=== PATIENT | male | born 1940 | race Caucasian/White ===

== ENCOUNTER 2018-12-30 12:39 | Emergency (ER) | payer MEDICARE, OTHER, SELFPAY ==
[2018-12-30 12:40] VITALS: BP 148/83; PULSE 104; RESP 18; TEMP 37.1; O2SAT 96; BMI 35.5
--- NOTE | 2018-12-30 13:02 | ED.RN ---
not triaged by this rn. previous triage under my name by another nurse
--- NOTE | 2018-12-30 13:16 | RAD_ITS ---
STUDY: X-RAY CHEST REASON FOR EXAM: Male, 78 years old. Cough TECHNIQUE: Frontal and lateral views of the chest. COMPARISON: None. FINDINGS: The lungs are clear and expanded. There is no demonstrated pleural abnormality. Normal size heart. Normal mediastinum and rosales. Normal visualized pulmonary arteries. Normal visualized aortic arch and descending thoracic aorta. There are diffuse degenerative changes of the visualized thoracic spine. Normal visualized ribs, clavicles, and shoulders. There is no demonstrated abnormality of the visualized soft tissue structures of the upper abdomen. RAD/Chest PA and Lateral IMPRESSION: Degenerative changes, as described above. No demonstrated acute cardiopulmonary process. Electronically Signed: Omar Herrera MD at 14:08 EDT , Service support ,
--- NOTE | 2018-12-30 13:16 | EKG12_ITS ---
Test Reason : Blood Pressure : / mmHG Vent. Rate : 097 BPM Atrial Rate : 097 BPM P-R Int : 152 ms QRS Dur : 090 ms QT Int : 324 ms P-R-T Axes : 015 -20 -10 degrees QTc Int : 411 ms Sinus rhythm with Premature atrial complexes Minimal voltage criteria for LVH, may be normal variant Borderline ECG Confirmed by SVETA WALKER, ASHA ([id number]), purchasing expeditor FAVIO BARKER ([id number]) on 12/31/2018 11:49:45 AM Referred By: NOAM Confirmed By:ASHA BANGURA MD
--- NOTE | 2018-12-30 13:17 | RAD_ITS ---
STUDY: X-RAY - LEFT ELBOW REASON FOR EXAM: Male, 78 years old. Pain. TECHNIQUE: 3 view(s) of the elbow. COMPARISON: None. FINDINGS: Normal visualized humerus, radius and ulna. 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 The soft tissue structures are unremarkable. There is intravenous catheter. There is no demonstrated fracture. RAD/Elbow min 3 Views IMPRESSION: Arthrosis of the elbow, as described above. Electronically Signed: Omar Herrera MD at 14:03 EDT , Service support ,
[2018-12-30 13:37] LABS: Absolute Lymphocyte Count 1.89 X10^3/ul (0.83-4.51); Absolute Neutrophil Count 12.7 X10^3/uL (2.0-7.7); Basophil# 0.03 X10^3/uL; Basophil% 0.2 % (0-1); Differential Indicated SCAN CRITERIA MET; Eosinophil# 0.08 X10^3/uL; Eosinophils% 0.5 % (0-5); Hematocrit 45.3 % (40-54); Hemoglobin 15.9 g/dl (13.0-16.5); Lymphocyte # 1.89 X10^3/ul (4.0); Lymphocyte % 11.4 % (19-41); Mean Corp Hgb Conc 35.1 g/gl (32-36); Mean Corpuscular Hgb 31.5 pg (27.0-32.0); Mean Corpuscular Volume 89.9 fL (80-94); Mean Platelet Vol. 9.2 fl (6.2-12.0); Monocyte# 1.93 X10^3/uL; Monocyte% 11.6 % (0-10); Neutrophil # 12.67 X10^3/uL (2.7-7.7); POSITIVE COUNT NO; POSITIVE DIFFERENTIAL YES; POSITIVE MORPHOLOGY NO; Platelet Count 306 K/mm3 (150-450); RBC Distribution Width CV 13.2 % (11.6-14.6); Red Blood Count 5.04 M/mm3 (4.6-6.2); White Blood Count 16.7 K/mm3 (4.4-11.0)
[2018-12-30 13:52] LABS: Anion Gap 8 (5-15); BUN 15 mg/dL (7-18); BUN/Creat Ratio 11.6 RATIO (10-20); Chloride 102 mmol/L (98-107); Creatinine, Serum 1.29 mg/dL (0.70-1.30); EST Glomerular Filtration Rate 57 mL/min (>60); Est Glom Filt Rate - Afr Amer 69 mL/min (>60); Estimated Creatinine Clearance 43.28 ml/min; Glucose 192 mg/dL (74-106); Sodium Level 135 mmol/L (136-145)
[2018-12-30 13:53] LABS: Reactive Lymphocyte RARE
--- NOTE | 2018-12-30 14:12 | ED.VISSUMM ---
- ER Visit Summary Date of Service: 12/30/18 Chief Complaint: Left arm pain and sore throat History of Present Illness: The patient is a 78 M who presents with left arm pain and sore throat that has been getting worse over the past 3 days. Patient states his pain is over the proximal forearm and elbow. Patient describes the pain as sharp. Patient states the pain is worse with movement and with lifting. Patient denies any paresthesias or weakness. Patient states he is also had a sore throat and a cough with some green sputum over the past 3 days. Patient also admits to some urinary frequency. Patient states he has pain in his throat that is worse with swallowing. Patient denies any fevers or chills. Physical Examination: Vital signs are stable. Patient is afebrile. Patient is in no acute distress. Oral mucosa is pink and moist. There is a small white exudate on the left tonsil. Neck is supple. Trachea is midline. There is no JVD or lymphadenopathy noted. Heart was regular rate and rhythm. Lungs are clear and equal bilaterally. Abdomen is soft and nontender. Bowel sounds are normal. Musculoskeletal exam reveals tenderness over the left proximal forearm and left elbow area. There is pain with range of motion in all motions of the left elbow. There is no bony crepitance or step-off. There is no deformity noted. Radial pulses are equal bilaterally. Sensation is intact light touch bilaterally in the radial, median, and ulnar areas. Strength is 5/5 in the radial, median, and ulnar areas. Test Results: EKG shows normal sinus rhythm with occasional PAC. There are no acute ST or T wave changes noted. CBC shows a mild leukocytosis of 16.7. Glucose was slightly elevated at 192. Troponin was normal. PA and lateral chest x-ray does not show any acute cardiopulmonary process. X-rays of the left elbow were obtained. There is some mild DJD but no acute fracture loose body. There is no joint effusion. Rapid strep test was obtained and was negative. Urinalysis was obtained. There is no evidence of urinary tract infection Emergency Department Course and Treatment: Patient felt better on reevaluation. Patient was advised of his findings. I do not feel that his left arm pain is cardiac related. It appears to be more musculoskeletal. Patient was instructed to take Tylenol or ibuprofen as needed for pain. Patient was instructed to use ice to the area. Patient was instructed to use sore throat lozenges as needed for his sore throat. Patient was instructed to drink plenty of fluids. Patient was instructed to follow-up with his primary care physician in 5 to 7 days. Patient understood and was agreeable with the plan. All questions were answered. Disposition: Discharge home Impression: 1. Left forearm strain 2. Viral upper respiratory infection This note was generated with [employer] dictation software. It may contain incorrect words, spelling, and punctuation that were not noted in review of the chart prior to signing ED Disposition - Plan for ED Patient: Disposition: Home or Assisted Living Diagnosis: Strain of left elbow and forearm, Acute viral pharyngitis Instructions: ED Strain Muscle Ext, ED Pharyngitis Viral Referrals: [facility] Doctor,Out of [Primary Care Provider] - 5-7 Days
[2018-12-30 15:19] VITALS: BP 150/82; PULSE 87; RESP 18; O2SAT 98
[2018-12-30 15:20] LABS: Bacteria 0 SEEN /hpf (None Seen)
[2018-12-30 15:27] LABS: Color, Urine Yellow (Yellow); Glucose, Dipstick Normal (Normal); Ketone-Dipstick 5 mg/dl (Negative); Leukocyte Esterase-Dipstick 25 /ul (Negative); Nitrite-Dipstick Negative (Negative); Occult Blood-Urine 25 /ul (Negative); Protein-Dipstick 15 mg/dl (Negative); Specific Gravity, Urine 1.015 (1.002-1.030); Urine Bilirubin Dipstick Negative (Negative); Urine Clarity Clear (Clear); Urine Urobilinogen 4 mg/dl (Normal)
[2018-12-30 15:35] LABS: Red Blood Cells-Urine 0-5 SEEN /hpf (0-5); Squamous Epithelial Cells - UA 0-5 SEEN /hpf (0-5); White Blood Cells 0-5 SEEN /hpf (0-5)
[2018-12-30 15:37] LABS: Mucous, Urine RARE /hpf (<or=2+)
[2018-12-30 16:31] VITALS: BP 148/84; PULSE 91; RESP 16; O2SAT 98
[2018-12-31 15:23] LABS: Pathologist Review Reviewed
== END 2018-12-30 16:32 | disposition home or self-care (01) ==
PROVIDERS: Emergency Provider Emergency Medicine
DX: S56.912A Strain of unspecified muscles, fascia and tendons at forearm level, left arm, initial encounter (principal); X58.XXXA Exposure to other specified factors, initial encounter; Y93.9 Activity, unspecified; Y92.9 Unspecified place or not applicable; J02.8 Acute pharyngitis due to other specified organisms; I10 Essential (primary) hypertension; E11.9 Type 2 diabetes mellitus without complications; E66.9 Obesity, unspecified; Z68.35 Body mass index [BMI] 35.0-35.9, adult; Z79.899 Other long term (current) drug therapy
CPT/HCPCS: 71046; 73080; 80048; 81001; 84484; 85025; 87880; 93005; 99283; A4216

== ENCOUNTER → 2019-08-28 11:40 | Outpatient (CLI) | payer MEDICARE, SELFPAY ==
[2019-08-28 10:26] VITALS: BMI 35.8
[2019-08-28 13:22] LABS: Anion Gap 4 (5-15); BUN 15 mg/dL (7-18); BUN/Creat Ratio 10.5 RATIO (10-20); Calcium,Total 9.2 mg/dL (8.5-10.1); Chloride 107 mmol/L (98-107); Creatinine, Serum 1.43 mg/dL (0.70-1.30); EST Glomerular Filtration Rate 51 mL/min (>60); Est Glom Filt Rate - Afr Amer 62 mL/min (>60); Glucose 126 mg/dL (74-106); Potassium 3.7 mmol/L (3.5-5.1); Sodium Level 141 mmol/L (136-145)
== END ==
PROVIDERS: Referring Provider Internal Medicine Cardiovascular Disease; Visit Provider Internal Medicine Cardiovascular Disease
DX: I10 Essential (primary) hypertension (principal)
CPT/HCPCS: 36415; 80048

== ENCOUNTER → 2019-09-03 07:19 | Outpatient (CLI) | payer MEDICARE, SELFPAY ==
[2019-08-28 10:26] VITALS: BMI 35.8
--- NOTE | 2019-09-03 07:38 | CT_ITS ---
STUDY: CT CHEST WITH CONTRAST REASON FOR EXAM: Male, 79 years old. TAA RADIATION DOSAGE (If Supplied By Facility): CTDIvol = ( 16.04 ) mGy, DLP = ( 689.00 ) mGycm TECHNIQUE: Transaxial imaging was performed following intravenous administration of 100CC ISOVUE 300. Multiplanar coronal and sagittal images were reformatted. Individualized dose optimization techniques were used for this CT. COMPARISON: Comparison is made with prior examination dated November 17, 2013. FINDINGS: Diffuse enlargement of the thyroid gland more prominent on the right side. The lungs are normal. There is no demonstrated pleural abnormality. Normal heart and pericardium. There are multiple small lymph nodes within the mediastinum, which are normal in size and morphology most compatible with reactive lymph hyperplasia. Normal hilar regions. Normal enhanced pulmonary arteries. Minimal dilatation of the ascending thoracic aorta with a transverse dimension of 4.5 cm. This is unchanged.. There are multi-level degenerative changes of the thoracic spine. Small hiatal hernia. CT/Chest WITH Contrast IMPRESSION: Stable dilatation of the ascending thoracic aorta with a transverse dimension of 4.5 cm. Electronically Signed: Edilberto Gillis, at 12:32 EST , Service support ,
== END ==
PROVIDERS: Referring Provider Internal Medicine Cardiovascular Disease; Visit Provider Internal Medicine Cardiovascular Disease
DX: I77.810 Thoracic aortic ectasia (principal)
CPT/HCPCS: 71260; Q9967

== ENCOUNTER 2020-08-24 10:13 | Emergency (ER) | payer MEDICARE, SELFPAY ==
[2019-08-28 10:26] VITALS: BMI 35.8
[2020-08-24 10:14] VITALS: BP 159/91; PULSE 76; RESP 16; TEMP 36.2; O2SAT 97; BMI 35.5
--- NOTE | 2020-08-24 10:39 | CT_ITS ---
STUDY: CT ABDOMEN AND PELVIS WITHOUT CONTRAST REASON FOR EXAM: Male, 80 years old. RT FLANK PAIN, NAUSEA. H/O [place] RADIATION DOSAGE (If Supplied By Facility): CTDIvol = ( 19.21 ) mGy, DLP = ( 993.64 ) mGycm TECHNIQUE: Transaxial images were obtained from the dome of the diaphragm to the symphysis pubis with oral contrast, and without intravenous contrast. Sagittal and coronal images were reconstructed. Individualized dose optimization techniques were used for this CT. COMPARISON: Comparison is made with prior study dated 06/14/2013. FINDINGS: Stable minimal scarring at the lung bases. The visualized portions of the heart are within normal limits. Normal liver. Normal gallbladder and extrahepatic biliary system. There are multiple benign calcified granulomata of the spleen. Normal pancreas. Normal bilateral adrenal glands. There is engorgement of the right kidney with right perinephric stranding. Mild degree of the right hydronephrosis and right hydroureter with periureteric stranding due to a 3.5 mm calculus in the distal portion of the right ureter just proximal to the ureterovesical junction. Normal left kidney. There is a small hiatal hernia. Normal small intestine. There are multiple colonic diverticula consistent with diverticulosis. The appendix is visualized and appears normal. There is scattered atherosclerotic calcification of the abdominal aorta, without a demonstrated aneurysm. Normal inferior vena cava. Normal retroperitoneum. Normal urinary bladder. There is a small umbilical hernia containing fat. Small left inguinal hernia containing fat. There are diffuse degenerative changes of the visualized lumbar spine. CT/Abdomen/Pelvis without Cont IMPRESSION: 3.5 mm calculus in the distal portion of the right ureter just proximal to the ureterovesical junction causing a mild degree of right hydronephrosis and hydroureter. Electronically Signed: Edilberto Gillis MD at 11:52 EST , Service support ,
--- NOTE | 2020-08-24 10:40 | ED.DCSUM_ITS ---
History of Present Illness Chief Complaint: Flank Pain Informant: Patient Narrative: 80-year-old male with a previous history of ureterolithiasis presenting with right flank pain. Symptoms have been intermittently present for 3 days. Today symptoms started at approximately 0500 and have not relented. He denies any known hematuria. Denies any abdominal pain. Pain has gotten to the point where he has vomited. He denies any abdominal pain. - Past Medical History (1) Ascending aorta dilatation Status: Chronic Comment: Stable dilatation of the ascending thoracic aorta with a transverse dimension of 4.[address] Scan 08/2019 (2) Essential (primary) hypertension Status: Chronic (3) Hyperlipidemia Status: Chronic (4) Type 2 diabetes mellitus Status: Chronic (5) Bicuspid aortic valve Status: Suspected Past Medical History - Allergies and Home Meds Allergies/Adverse Reactions: Allergies No Known Allergies Allergy (Verified 08/24/20 10:14) Primary Care Physician: NOT,DEFINED [NON-STAFF] - Surgical History: - - Carpal tunnel surgery Lives: Spouse/ Significant Other Smoking Status: Never smoker Drugs: None Review of Systems General: Denies: Chills, Fever, Sweats Eyes: Denies: Visual changes - bilaterally, Diplopia ENT: Denies: Rhinorrhea, Sore throat Cardiovascular: Denies: Chest pain, Palpitations Respiratory: Denies: Dyspnea, Cough, Dyspnea on exertion Gastrointestinal: Denies: Abdominal pain, Nausea, Vomiting, Diarrhea, Melena, Hematochezia Genitourinary: Denies: Dysuria, Hematuria, Frequency Musculoskeletal: Reports: - - Right flank. Denies: Extremity Pain Skin: Denies: Rash, Wounds Neurological: Denies: Headache, Weakness, Numbness Physical Exam Vital Signs/Narrative: Vital Signs Temp Pulse Resp BP Pulse Ox 08/24/20 10:14 97.2 F L 76 16 159/91 H 97 Inital Vital Signs reviewed: Yes General: Well nourished, Well developed, Obese, No Acute Distress, - - Patient appears uncomfortable in the room pacing. He is holding his right flank Head: Normocephalic, Atraumatic Eyes: Perrl, EOMI ENT: Moist mucous membranes, No rhinorrhea Neck: Supple, Nontender Cardiovascular: Regular rate, Regular rhythm, No murmurs Respiratory: No distress, CTA bilaterally, Chest nontender Abdomen: Soft, Nontender, Nondistended, Normal bowel sounds Back: Nontender, Normal Inspection Extremities: Nontender, No edema Skin: Normal color, No rash Neurological: Alert, Oriented x3, Cranial nerves II-XII grossly intact, Normal Strength, Normal Sensation Psychological: Normal affect, Normal Mood Diagnostic/Tx/Re-eval Clinical Impression(s) from Imaging Studies Abdomen/Pelvis CT 08/24/20 10:39 IMPRESSION: 3.5 mm calculus in the distal portion of the right ureter just proximal to the ureterovesical junction causing a mild degree of right hydronephrosis and hydroureter. Electronically Signed: Edilberto Gillis MD at 11:52 EST , Service support , Laboratory Last Values WBC 10.5 K/mm3 (4.4-11.0) 08/24/20 10:52 RBC 5.30 M/mm3 (4.6-6.2) 08/24/20 10:52 Hgb 16.7 g/dL (13.0-16.5) H 08/24/20 10:52 Hct 48.6 % (40-54) 08/24/20 10:52 MCV 91.7 fL (80-94) 08/24/20 10:52 MCH 31.5 pg (27.0-32.0) 08/24/20 10:52 MCHC 34.4 g/dL (32-36) 08/24/20 10:52 RDW Std Deviation 42.1 fl (35.1-43.9) 08/24/20 10:52 RDW Coeff of Tee 12.6 % (11.6-14.6) 08/24/20 10:52 Plt Count 305 K/mm3 (150-450) 08/24/20 10:52 MPV 9.3 fl (6.2-12.0) 08/24/20 10:52 Immature Gran % (Auto) 0.600 % (0.0-0.9) 08/24/20 10:52 Neut % (Auto) 59.4 % (47-70) 08/24/20 10:52 Lymph % (Auto) 27.7 % (19-41) 08/24/20 10:52 [place] % (Auto) 7.8 % (0-10) 08/24/20 10:52 Eos % (Auto) 3.7 % (0-5) 08/24/20 10:52 Baso % (Auto) 0.8 % (0-1) 08/24/20 10:52 Absolute Neuts (auto) 6.3 X10^3/uL (2.0-7.7) 08/24/20 10:52 Absolute Lymphs (auto) 2.92 X10^3/uL (0.83-4.51) 08/24/20 10:52 Nucleated RBC % 0 % (0-5) 08/24/20 10:52 Sodium 140 mmol/L (136-145) 08/24/20 10:52 Potassium 4.1 mmol/L (3.5-5.1) 08/24/20 10:52 Chloride 107 mmol/L (98-107) 08/24/20 10:52 Carbon Dioxide 24.0 mmol/L (21.0-32.0) 08/24/20 10:52 Anion Gap 9 (5-15) 08/24/20 10:52 BUN 13 mg/dL (7-18) 08/24/20 10:52 Creatinine 1.30 mg/dL (0.70-1.30) 08/24/20 10:52 Estim Creat Clear Calc 41.58 ml/min 08/24/20 10:52 Est GFR (MDRD) Af Amer 68 mL/min (>60) 08/24/20 10:52 Est GFR (MDRD) Non-Af 57 mL/min (>60) L 08/24/20 10:52 BUN/Creatinine Ratio 10.0 RATIO (10-20) 08/24/20 10:52 Glucose 179 mg/dL (74-106) H 08/24/20 10:52 Calcium 9.0 mg/dL (8.5-10.1) 08/24/20 10:52 Total Bilirubin 0.30 mg/dL (0.20-1.00) 08/24/20 10:52 AST 20 U/L (15-37) 08/24/20 10:52 ALT 30 U/L (16-61) 08/24/20 10:52 Alkaline Phosphatase 82 U/L (45-117) 08/24/20 10:52 Total Protein 8.0 g/dL (6.4-8.2) 08/24/20 10:52 Albumin 3.8 g/dL (3.2-5.0) 08/24/20 10:52 Globulin 4.2 g/dL (2.2-4.2) 08/24/20 10:52 Albumin/Globulin Ratio 0.9 RATIO (0.9-2.4) 08/24/20 10:52 Lipase 162 U/L (73-393) 08/24/20 10:52 Urine Color Yellow (Yellow) 08/24/20 10:45 Urine Clarity Sl. Cloudy (Clear) 08/24/20 10:45 Urine pH 5.0 (5.0 - 8.0) 08/24/20 10:45 Ur Specific [place] 1.025 (1.002-1.030) 08/24/20 10:45 Urine Protein Negative mg/dl (Negative) 08/24/20 10:45 Urine Glucose (UA) Normal mg/dl (Normal) 08/24/20 10:45 Urine Ketones Negative mg/dl (Negative) 08/24/20 10:45 Urine Occult Blood 10 /ul (Negative) H 08/24/20 10:45 Urine Nitrite Negative (Negative) 08/24/20 10:45 Urine Bilirubin Negative mg/dL (Negative) 08/24/20 10:45 Urine Urobilinogen Normal mg/dl (Normal) 08/24/20 10:45 Ur Leukocyte Esterase 25 /ul (Negative) H 08/24/20 10:45 Urine RBC 0 SEEN /hpf (0-5) 08/24/20 10:45 Urine WBC 0-5 SEEN /hpf (0-5) 08/24/20 10:45 Ur Squamous Epith Cells 0-5 SEEN /hpf (0-5) 08/24/20 10:45 Urine Bacteria RARE /hpf (None Seen) 08/24/20 10:45 Urine Mucus 0 SEEN /hpf (<or=2+) 08/24/20 10:45 - Medical Decision Making Work-up reveals normal white counts normal creatinine and no evidence of UTI. CT demonstrates a distal 3.5 mm calculus. Patient will be started on pain medication at home. Nausea medicine. Follow-up with urology return if worsening or concerns ED Disposition - Plan for ED Patient: Disposition: Home or Assisted Living Diagnosis: Right ureteral calculus, Renal colic on right side Instructions: ED Kidney Stone w/ Colic Prescriptions: Hydrocodone Bitart/Apap 5-325 [[place] 5MG-325MG] 1 tab PO Q6H PRN PRN 3 Days #12 tab PRN Reason: Pain Prescription Printed Ondansetron [Zofran Odt] 4 mg PO Q6H PRN PRN #10 tab PRN Reason: Nausea Prescription Printed Referrals: Jonathan Tello MD [STAFF PHYSICIAN] - (Call to obtain urologic follow-up)
[2020-08-24 10:50] LABS: Mucous, Urine 0 SEEN /hpf (<or=2+); Red Blood Cells-Urine 0 SEEN /hpf (0-5)
[2020-08-24 10:51] LABS: Color, Urine Yellow (Yellow); Glucose, Dipstick Normal (Normal); Ketone-Dipstick Negative (Negative); Leukocyte Esterase-Dipstick 25 /ul (Negative); Nitrite-Dipstick Negative (Negative); Occult Blood-Urine 10 /ul (Negative); Protein-Dipstick Negative (Negative); Specific Gravity, Urine 1.025 (1.002-1.030); Urine Bilirubin Dipstick Negative (Negative); Urine Clarity Sl. Cloudy (Clear); Urine Urobilinogen Normal (Normal)
[2020-08-24] MEDS: Morphine 4 MG/ML Syringe IV (10:55)
[2020-08-24] MEDS: Ondansetron 4 MG/2 ML Vial IV (10:55)
[2020-08-24 10:57] LABS: Bacteria RARE /hpf (None Seen); Squamous Epithelial Cells - UA 0-5 SEEN /hpf (0-5); White Blood Cells 0-5 SEEN /hpf (0-5)
[2020-08-24 10:57] LABS: Absolute Lymphocyte Count 2.92 X10^3/uL (0.83-4.51); Absolute Neutrophil Count 6.3 X10^3/uL (2.0-7.7); Basophil# 0.08 X10^3/uL; Basophil% 0.8 % (0-1); Eosinophil# 0.39 X10^3/uL; Eosinophils% 3.7 % (0-5); Hematocrit 48.6 % (40-54); Hemoglobin 16.7 g/dL (13.0-16.5); Lymphocyte # 2.92 X10^3/ul (4.0); Lymphocyte % 27.7 % (19-41); Mean Corp Hgb Conc 34.4 g/dL (32-36); Mean Corpuscular Hgb 31.5 pg (27.0-32.0); Mean Corpuscular Volume 91.7 fL (80-94); Mean Platelet Vol. 9.3 fl (6.2-12.0); Monocyte# 0.82 X10^3/uL; Monocyte% 7.8 % (0-10); NRBC Flagged by Analyzer 0 % (0-5); Neutrophil # 6.26 X10^3/uL (2.7-7.7); Neutrophil % 59.4 % (47-70); Platelet Count 305 K/mm3 (150-450); RBC Distribution Width CV 12.6 % (11.6-14.6); RBC Distribution Width SD 42.1 fl (35.1-43.9); White Blood Count 10.5 K/mm3 (4.4-11.0)
[2020-08-24 11:11] LABS: ALB/GLOB Ratio 0.9 RATIO (0.9-2.4); AST(SGOT) 20 U/L (15-37); Alanine Aminotransfer ALT/SGPT 30 U/L (16-61); Albumin, Serum 3.8 g/dL (3.2-5.0); Alkaline Phosphatase 82 U/L (45-117); Anion Gap 9 (5-15); BUN 13 mg/dL (7-18); Chloride 107 mmol/L (98-107); EST Glomerular Filtration Rate 57 mL/min (>60); Est Glom Filt Rate - Afr Amer 68 mL/min (>60); Estimated Creatinine Clearance 41.58 ml/min; Globulin 4.2 g/dL (2.2-4.2); Glucose 179 mg/dL (74-106); Lipase 162 U/L (73-393); Potassium 4.1 mmol/L (3.5-5.1); Sodium Level 140 mmol/L (136-145)
[2020-08-24 12:31] VITALS: BP 134/78; PULSE 87; RESP 16; O2SAT 94
== END 2020-08-24 12:31 | disposition home or self-care (01) ==
PROVIDERS: Emergency Provider Emergency Medicine; PCP Internal Medicine
DX: N13.2 Hydronephrosis with renal and ureteral calculous obstruction (principal); E66.9 Obesity, unspecified; Z87.442 Personal history of urinary calculi
CPT/HCPCS: 36415; 74176; 80053; 81001; 83690; 85025; 96374; 96375; 99284; A4216; J2405

== ENCOUNTER → 2020-11-10 12:40 | Outpatient (CLI) | payer MEDICARE, SELFPAY ==
[2020-09-01 09:21] VITALS: BMI 36.6
[2020-11-10 13:06] LABS: Hematocrit 46.4 % (40-54); Hemoglobin 15.7 g/dL (13.0-16.5); Mean Corp Hgb Conc 33.8 g/dL (32-36); Mean Corpuscular Hgb 31.6 pg (27.0-32.0); Mean Corpuscular Volume 93.4 fL (80-94); Mean Platelet Vol. 9.3 fl (6.2-12.0); Platelet Count 285 K/mm3 (150-450); RBC Distribution Width CV 13.7 % (11.6-14.6); RBC Distribution Width SD 46.4 fl (35.1-43.9); Red Blood Count 4.97 M/mm3 (4.6-6.2); White Blood Count 10.7 K/mm3 (4.4-11.0)
[2020-11-10 13:37] LABS: Anion Gap 6 (5-15); BUN 14 mg/dL (7-18); Calcium,Total 9.1 mg/dL (8.5-10.1); Chloride 107 mmol/L (98-107); Creatinine, Serum 1.27 mg/dL (0.70-1.30); EST Glomerular Filtration Rate 58 mL/min (>60); Est Glom Filt Rate - Afr Amer 70 mL/min (>60); Glucose 146 mg/dL (74-106); Potassium 3.7 mmol/L (3.5-5.1); Sodium Level 140 mmol/L (136-145)
[2020-11-10 13:38] LABS: BNP,B-Type NATRIURETIC PEPTIDE 24.8 pg/mL (0-100)
== END ==
PROVIDERS: PCP Internal Medicine; Referring Provider Nurse Practitioner Family; Visit Provider Nurse Practitioner Family
DX: R14.0 Abdominal distension (gaseous) (principal); R06.00 Dyspnea, unspecified; R06.02 Shortness of breath; R00.0 Tachycardia, unspecified; I71.2 Thoracic aortic aneurysm, without rupture; I10 Essential (primary) hypertension
CPT/HCPCS: 36415; 80048; 83880; 85027

== ENCOUNTER 2020-11-12 09:06 | Observation (INO) | payer MEDICARE, SELFPAY ==
[2020-11-10 13:26] VITALS: BMI 36.3
[2020-11-12] VITALS (12 sets, daily range): BP systolic 128–153; BP diastolic 71–90; PULSE 62–88; RESP 16–20; TEMP 36.5–37.1; O2SAT 93–95; BMI 36.3; BMI 36.4; BMI 36.5
--- NOTE | 2020-11-12 09:24 | EKG12_ITS ---
Test Reason : SOB Blood Pressure : / mmHG Vent. Rate : 075 BPM Atrial Rate : 075 BPM P-R Int : 172 ms QRS Dur : 094 ms QT Int : 414 ms P-R-T Axes : 028 -09 -01 degrees QTc Int : 462 ms Normal sinus rhythm Inferior infarct , age undetermined Abnormal ECG Confirmed by WARREN WALKER, WENDIE ([id number]), video news editor JUAN GALINDO ([id number]) on 11/17/2020 9:08:07 AM Referred By: SIGRID Confirmed By:BECKIE KELLEY MD
--- NOTE | 2020-11-12 09:25 | CT_ITS ---
STUDY: CTA CHEST REASON FOR EXAM: Male, 80 years old. Shortness of breath PE suspected RADIATION DOSAGE (If Supplied By Facility): CTDIvol = ( 12.3 ) mGy, DLP = ( 545.07 ) mGycm TECHNIQUE: The examination was performed with the intravenous administration of IV 100mL Isovue-370. Post-processing of the angiographic images was performed, with multiplanar reformation and 3D reconstruction. Individualized dose optimization techniques were used for this CT. COMPARISON: Comparison is made with prior examination dated 09/03/2019. FINDINGS: Enlargement of the right lobe of the thyroid. There are multiple bilateral intraluminal filling defects in branches of both the right and left pulmonary arteries in keeping with diffuse bilateral pulmonary emboli. Thrombus is also seen within the interlobar pulmonary arteries bilaterally. There is aneurysmal dilatation of the ascending aorta. The transverse diameter of the ascending aorta measures 43.9 mm''s. There is no demonstrated aortic dissection. Normal heart and pericardium. There are visualized mediastinal lymph nodes, which are within normal size limits, and with normal morphology. There are calcified left hilar lymph nodes. Normal visualized trachea and bronchi. The lungs are well expanded. Minimal degree of increased markings at the lung bases suggest some mild atelectasis. Normal pleura. Normal chest wall structures. There are degenerative changes of thoracic spine. Small hiatal hernia. CT/CTA Chest W/WO Contrast IMPRESSION: Diffuse bilateral pulmonary emboli as described. Stable dilatation of the proximal ascending thoracic aorta. Electronically Signed: Edilberto Gillis MD at 10:40 EDT , Service support ,
--- NOTE | 2020-11-12 09:27 | ED.DCSUM_ITS ---
History of Present Illness Chief Complaint: Shortness of Breath Narrative: This patient is a 80-year-old male who presents with shortness of breath. He states he had an upper GI on October 02. Ever since then he has had progressively worsening shortness of breath particularly with exertion. He also has had about a 5 pound weight gain. He has some mild swelling on his legs. No history of congestive heart failure. No chest pain. No infectious symptoms. He denies fever congestion rhinorrhea cough. No vomiting. No diarrhea. He does have a history of pulmonary embolism in 2013. He is no longer on anticoagulation. He saw cardiology 2 days ago. He is scheduled for Holter monitoring, echocardiogram, outpatient CT angiogram. He also had an x-ray. Per the patient this showed a spot which they thought may be a nipple shadow so he had a follow-up x-ray as well as blood work. He was called back and told to go to the emergency department immediately due to concern for possible blood clot. I suspect this was due to an elevated D-dimer but the patient is uncertain. On ambulating to the room patient desaturated to 87% on room air. Past Medical History - Allergies and Home Meds Allergies/Adverse Reactions: Allergies No Known Allergies Allergy (Verified 11/12/20 09:09) Primary Care Physician: Annette Lopez MD [Primary Care Provider] - Past Medical History: - - Diabetes, hypertension, history of pulmonary embolism Surgical History: - - Carpal tunnel surgery Smoking Status: Never smoker Review of Systems All systems negative except as indicated General: Denies: Fever Eyes: Denies: Visual changes - bilaterally ENT: Denies: Bilateral ear pain Cardiovascular: Denies: Chest pain Respiratory: Reports: Dyspnea. Denies: Cough Gastrointestinal: Denies: Abdominal pain, Nausea, Vomiting, Diarrhea Musculoskeletal: Reports: Swelling. Denies: Myalgias, Arthralgias, Extremity Pain Skin: Denies: Rash Neurological: Denies: Headache Allergy: Denies: Uticaria Physical Exam Vital Signs/Narrative: Vital Signs Temp Pulse Resp BP Pulse Ox 11/12/20 09:17 97.9 F 88 20 H 153/83 H 93 11/12/20 09:06 97.9 F 88 20 H 153/83 H 93 Inital Vital Signs reviewed: Yes General: Well nourished Head: Normocephalic Eyes: EOMI ENT: Moist mucous membranes Neck: Supple Cardiovascular: Regular rate, Regular rhythm Respiratory: No distress, CTA bilaterally. Negative for: Rales, Rhonchi, Wheezing Abdomen: Soft, Nontender Extremities: Nontender, No edema - Mild lower extremity edema, symmetric Skin: Normal color Neurological: Alert Psychological: Normal affect Diagnostic/Tx/Re-eval Impressions Chest CTA 11/12/20 09:25 IMPRESSION: Diffuse bilateral pulmonary emboli as described. Stable dilatation of the proximal ascending thoracic aorta. Electronically Signed: Edilberto Gillis MD at 10:40 EDT , Service support , 11/12/20 09:25 CTA Chest W/WO Contrast [CT] Stat 11/12/20 09:40 Nasal Secretion SARS-CoV-2 Antigen (Rapid) - Final Laboratory Results 11/12/20 11/12/20 11/12/20 09:50 09:50 09:50 WBC 7.9 RBC 5.03 Hgb 15.4 Hct 45.8 MCV 91.1 MCH 30.6 MCHC 33.6 RDW Std Deviation 45.7 H RDW Coeff of Tee 13.7 Plt Count 279 MPV 9.2 Immature Gran % (Auto) 0.800 Neut % (Auto) 60.8 Lymph % (Auto) 25.1 [place] % (Auto) 9.9 Eos % (Auto) 2.9 Baso % (Auto) 0.5 Absolute Neuts (auto) 4.8 Absolute Lymphs (auto) 1.97 Nucleated RBC % 0 PT 13.1 INR 1.1 Sodium 139 Potassium 4.0 Chloride 108 H Carbon Dioxide 26.0 Anion Gap 5 BUN 15 Creatinine 1.26 Estim Creat Clear Calc 42.90 Est GFR (MDRD) Af Amer 71 Est GFR (MDRD) Non-Af 59 L BUN/Creatinine Ratio 11.9 Glucose 164 H Calcium 8.9 Troponin I < 0.015 B-Natriuretic Peptide 11/12/20 09:50 WBC RBC Hgb Hct MCV MCH MCHC RDW Std Deviation RDW Coeff of Tee Plt Count MPV Immature Gran % (Auto) Neut % (Auto) Lymph % (Auto) [place] % (Auto) Eos % (Auto) Baso % (Auto) Absolute Neuts (auto) Absolute Lymphs (auto) Nucleated RBC % PT INR Sodium Potassium Chloride Carbon Dioxide Anion Gap BUN Creatinine Estim Creat Clear Calc Est GFR (MDRD) Af Amer Est GFR (MDRD) Non-Af BUN/Creatinine Ratio Glucose Calcium Troponin I B-Natriuretic Peptide 26.3 - Medical Decision Making On ambulating to the room patient's pulse ox was 87% with ambulation. He is 93% on room air at rest. EKG shows normal sinus rhythm inferior Q waves. Serum laboratory studies are unremarkable. CT angiogram of the chest shows bilateral pulmonary emboli. Patient was started on Xarelto. Given his hypoxia he will be discussed with the hospitalist for admission. ED Disposition - Plan for ED Patient: Disposition: Acute Care [facility] Diagnosis: Pulmonary emboli Referrals: Annette Lopez MD [Primary Care Provider] -
[2020-11-12 10:10] LABS: Absolute Lymphocyte Count 1.97 X10^3/uL (0.83-4.51); Absolute Neutrophil Count 4.8 X10^3/uL (2.0-7.7); Basophil# 0.04 X10^3/uL; Basophil% 0.5 % (0-1); Eosinophil# 0.23 X10^3/uL; Eosinophils% 2.9 % (0-5); Hematocrit 45.8 % (40-54); Hemoglobin 15.4 g/dL (13.0-16.5); Lymphocyte # 1.97 X10^3/ul (0.83-4.51); Lymphocyte % 25.1 % (19-41); Mean Corp Hgb Conc 33.6 g/dL (32-36); Mean Corpuscular Hgb 30.6 pg (27.0-32.0); Mean Corpuscular Volume 91.1 fL (80-94); Mean Platelet Vol. 9.2 fl (6.2-12.0); Monocyte# 0.78 X10^3/uL; Monocyte% 9.9 % (0-10); NRBC Flagged by Analyzer 0 % (0-5); Neutrophil # 4.77 X10^3/uL (2.7-7.7); Neutrophil % 60.8 % (47-70); Platelet Count 279 K/mm3 (150-450); RBC Distribution Width CV 13.7 % (11.6-14.6); RBC Distribution Width SD 45.7 fl (35.1-43.9); Red Blood Count 5.03 M/mm3 (4.6-6.2); White Blood Count 7.9 K/mm3 (4.4-11.0)
[2020-11-12 10:16] LABS: International Normalized Ratio 1.1; Prothrombin Time (Protime)PT. 13.1 SECONDS (11.7-14.9)
[2020-11-12 10:22] LABS: Anion Gap 5 (5-15); BUN 15 mg/dL (7-18); BUN/Creat Ratio 11.9 RATIO (10-20); Calcium,Total 8.9 mg/dL (8.5-10.1); Chloride 108 mmol/L (98-107); Creatinine, Serum 1.26 mg/dL (0.70-1.30); EST Glomerular Filtration Rate 59 mL/min (>60); Est Glom Filt Rate - Afr Amer 71 mL/min (>60); Glucose 164 mg/dL (74-106); Sodium Level 139 mmol/L (136-145)
[2020-11-12 10:36] LABS: BNP,B-Type NATRIURETIC PEPTIDE 26.3 pg/mL (0-100)
[2020-11-12] MEDS: Rivaroxaban 15 MG Tablet PO ×2 (10:52→16:23)
--- NOTE | 2020-11-12 11:35 | ED.RN ---
to move car and use [facility]. dr das in to see pt for admission.
--- NOTE | 2020-11-12 12:07 | HP.PCM_ITS ---
Problem List (1) Pulmonary emboli Status: Acute (2) Abdominal distention Status: Chronic (3) Dyspnea on exertion Status: Acute (4) Shortness of breath Status: Acute (5) Tachycardia Status: Acute (6) Thoracic aortic aneurysm (TAA) Status: Chronic Qualifiers: Presence of rupture: without rupture Qualified Code(s): I71.2 - Thoracic aortic aneurysm, without rupture Comment: Stable dilatation of the ascending thoracic aorta with a transverse dimension of 4.[address] Scan 08/2019 (7) Essential (primary) hypertension Status: Chronic (8) Hyperlipidemia Status: Chronic History of Present Illness Date of Admission: 11/12/20 Chief Complaint: shortness of breath The patient is a 80 year old M presents with shortness of breath that began October 01. on October 01, he underwent an EGD and was short of breath afterwards. He has had NIEVES. Denies chest pain. He presents with ongoing shortness of breath. He underwent a CTA and found to have bilateral PEs. He received rivaroxaban. Pt's pulse ox dropped down to 87% on RA. He has had VTE in past (he is unsure if DVT or PE) after travelling to [facility] years ago. He was on anticoagulation for several months at that time. He denies any immobilization, leg injury. [] Past Medical History Past Medical History (Chronic Problems): Chronic Problems (Last Reviewed 11/10/20 @ 13:30 by Eveline Rea) Abdominal distention (Chronic) Thoracic aortic aneurysm (TAA) (Chronic) Stable dilatation of the ascending thoracic aorta with a transverse dimension of 4.[address] Scan 08/2019 Essential (primary) hypertension (Chronic) Hyperlipidemia (Chronic) Medical History: Medical History (Last Reviewed 11/12/20 @ 12:[address] Rickie Chino, ) Abdominal distention (Chronic) R14.0 Dyspnea on exertion (Acute) R06.00 Shortness of breath (Acute) R06.02 Tachycardia (Acute) R00.0 Thoracic aortic aneurysm (TAA) (Chronic) I71.2 Stable dilatation of the ascending thoracic aorta with a transverse dimension of 4.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 CKD (chronic kidney disease) N18.9 Diverticulosis K57.90 Obesity E66.9 Type 2 diabetes mellitus E11.9 Anal fistula K60.3 GI bleed K92.2 History of pulmonary embolism Onset Date: 10/2013 Z86.711 LLL Kidney stone N20.0 Bicuspid aortic valve (Ruled-out) Q23.1 Allergies No Known Allergies Allergy (Verified 11/12/20 09:09) Home Medications: Ambulatory Orders Medication Instructions Recorded Lisinopril [Zestril] 40 mg PO DAILY 06/14/13 aspirin 81 mg tablet,delayed 81 mg PO DAILY 08/27/19 release glimepiride 1 mg tablet 1 mg PO DAILY 08/27/19 beet root 2 cap PO .QD 08/28/19 tamsulosin 0.4 mg capsule 0.4 mg PO QHS cap 09/01/20 Surgical History: Surgical History (Last Reviewed 11/12/20 @ 12:[address] Rickie Chino, DO) History of carpal tunnel release Z98.890 History of colonoscopy Z98.890 History of rectal surgery Z98.890 anal fistula repair History of shoulder surgery Z98.890 Surgical History: - - Carpal tunnel surgery Psychiatric History: No pertinent psych hx Smoking Status: Never smoker - *Family History Maternal History Items: - - CAD Review of Systems Constitutional: Denies: Anorexia, Chills, Fever, Night Sweats Eyes: Denies: Blurred vision, Double vision HEENT: Denies: Head Aches, Sinus Congestion, Sinus Drainage Cardiovascular: Denies: Chest Pain, Palpitations Respiratory: Reports: Shortness of breath upon exertion Gastrointestinal: Denies: Abdominal Pain, Hematochezia, Nausea, Melena, Vomiting Genitourinary: Denies: Hematuria Musculoskeletal: Denies: Joint Pain, Joint Tenderness Skin: Denies: Rash, Wounds Neurological: Denies: Numbness, Tingling, Focal weakness Hematologic/ Lymphatic: Reports: Hx of blood clot. Denies: Easy Bruising, Easy Bleeding Comment: All review of systems were negative except as mentioned above in the history of present illness and the other review of systems. VTE Information - Inpt Only VTE Present on Admission: Yes VTE Mechan Device Prophylaxis: None VTE Pharm Prophylaxis ordered?: No Reason prophylaxis not ordered:: Treatment Not Indicated Patient Problems: Active and Suspected Problems (Last Reviewed 11/10/20 @ 13:30 by Eveline Rea) Pulmonary emboli (Acute) - Physical Exam Vitals/I&O's: Vital Signs Temp Pulse Resp BP Pulse Ox 36.6 C 62 17 139/90 H 94 11/12/20 11:29 11/12/20 11:29 11/12/20 11:29 11/12/20 11:29 11/12/20 11:29 Oxygen Delivery Method Room Air Weight: 102.058 kg Body Mass Index (BMI) 36.3 General: Alert, Cooperative, No apparent distress HEENT: Atraumatic, Normocephalic Oral: Moist Mucosa, No Gingival or Mucosal Lesions/ Ulcerations Neck: No Nodes, Thyroid Normal Size and Texture Lungs: Clear to auscultation, Normal air movement, No rhonchi, No wheeze Cardiovascular: Regular rate, Regular Rhythm, Normal S1, Normal S2, No murmurs Abdomen: Bowel Sounds Present, Soft, Non Tender, Non-Distended, No Hepato- splenomegaly Extremities: No edema, No Calf Tenderness Skin: No rashes, No breakdown Musculoskeletal: No Tenderness to Palpation of Joints or Extremities Psych/Mental Status: Normal Affect, Appropriate Microbiology Past 72 Hours 11/12/20 09:40 Nasal Secretion SARS-CoV-2 Antigen (Rapid) - Final Laboratory Results 11/12/20 09:50: WBC 7.9, RBC 5.03, Hgb 15.4, Hct 45.8, MCV 91.1, MCH 30.6, MCHC 33.6, RDW Std Deviation 45.7 H, RDW Coeff of Tee 13.7, Plt Count 279, MPV 9.2, Immature Gran % (Auto) 0.800, Neut % (Auto) 60.8, Lymph % (Auto) 25.1, [place] % (Auto) 9.9, Eos % (Auto) 2.9, Baso % (Auto) 0.5, Absolute Neuts (auto) 4.8, Absolute Lymphs (auto) 1.97, Nucleated RBC % 0 11/12/20 09:50: PT 13.1, INR 1.1 11/12/20 09:50: Sodium 139, Potassium 4.0, Chloride 108 H, Carbon Dioxide 26.0, Anion Gap 5, BUN 15, Creatinine 1.26, Estim Creat Clear Calc 42.90, Est GFR (MDRD) Af Amer 71, Est GFR (MDRD) Non-Af 59 L, BUN/Creatinine Ratio 11.9, Glucose 164 H, Calcium 8.9, Troponin I < 0.015 11/12/20 09:50: B-Natriuretic Peptide 26.3 Clinical Impression(s) from Imaging Studies Chest CTA 11/12/20 09:25 IMPRESSION: Diffuse bilateral pulmonary emboli as described. Stable dilatation of the proximal ascending thoracic aorta. Electronically Signed: Edilberto Gillis MD at 10:40 EDT , Service support , Assessment/Plan All Active Problems (Last Reviewed 11/10/20 @ 13:30 by Eveline Rea) Pulmonary emboli (Acute) Dyspnea on exertion (Acute) Shortness of breath (Acute) Tachycardia (Acute) Chest pain (Resolved) Bicuspid aortic valve (Ruled-out) 1. pulmonary embolism Symptoms began on October 01. Is likely subacute rather than acute. Patient, I suspect, has a predisposition to blood clots. Patient had a blood clot sound like it was provoked several years ago when visiting [facility] in [place]. Plan: * Is to continue with rivaroxaban for at least 6 months though I suspect he will be on it longer. I advised the patient to follow-up with hematology at around 6-month bebeto to see if he would require hypercoagulable work-up or lifelong anticoagulation as this particular blood clot was unprovoked. * Check an echocardiogram and cycle cardiac markers. 2. Hypertension Fair control at this time Continue with lisinopril OBSV E&M: 14492 Subsequent observation care L2
--- NOTE | 2020-11-12 12:13 | ECHOD_ITS ---
Reason For Study: PE Procedure This was a 2D Doppler, Color Flow transthoracic echocardiogram. The study was technically difficult. Exam performed portable in patient room. Left Ventricle Normal LV size. Left ventricular systolic function is normal. The estimated ejection fraction is 65 %. There is evidence of diastolic dysfunction. No regional wall motion abnormalities noted. Right Ventricle Mildly dilated right ventricle. Normal systolic function. Atria Normal left atrium. Normal right atrium. No doppler evidence for ASD. Mitral Valve There is no mitral annular calcification. Normal mitral valve. Trivial mitral valve insufficiency. Tricuspid Valve Normal tricuspid valve. Trivial tricuspid valve insufficiency. Right ventricular systolic pressure estimated to be 57 mmHg. Aortic Valve Trisinus/trileaflet aortic valve. Moderate focal aortic valve calcification. Trivial aortic valve insufficiency. Pulmonic Valve The pulmonic valve is not well visualized. Great Vessels Mildly dilated aortic root. Pericardium/Pleural No pericardial effusion. Medication Negative bubble on previous MEGGAN. MMode/2D Measurements & Calculations LVIDd: 4.4 cm IVSd: 1.2 cm LVOT diam: 2.3 cm LVIDs: 2.8 cm LVPWd: 1.3 cm RVDd: 3.7 cm FS: 37.7 % LVOT area: 4.2 cm2 Ao root diam: 4.3 cm LAV(MOD-bp): 36.0 ml LA A4 area: 13.7 cm2 LAV(MOD-bp) Indexed: 17.1 ml/m2 LAV(MOD-sp2): 39.4 ml LAV(MOD-sp4): 31.1 ml LA dimension(2D): 2.8 cm RA A4 area: 11.6 cm2 Doppler Measurements & Calculations MV E max cruz: 81.6 cm/sec Lat Peak E' Cruz: 11.9 cm/sec Med Peak E' Cruz: 5.6 cm/sec MV A max cruz: 101.6 cm/sec E/E' lat: 6.9 E/E' med: 14.7 MV E/A: 0.80 Ao V2 max: 210.8 cm/sec LV V1 max: 128.8 cm/sec SV(LVOT): 110.5 ml Ao max P.8 mmHg LV V1 max P.6 mmHg Ao V2 mean: 135.3 cm/sec LV V1 mean P.5 mmHg Ao mean P.4 mmHg LV V1 mean: 87.5 cm/sec Ao V2 VTI: 38.7 cm LV V1 VTI: 26.3 cm CHLOE(I,D): 2.9 cm2 CHLOE(V,D): 2.6 cm2 PA V2 max: 64.8 cm/sec TR max cruz: 338.6 cm/sec TR max P.9 mmHg ECHO/Echo Complete Interpretation Summary The study was technically difficult. Left ventricular systolic function is normal. The estimated ejection fraction is 65 %. Mildly dilated right ventricle. Trivial mitral valve insufficiency. Trivial tricuspid valve insufficiency. Moderate focal aortic valve calcification. Mildly dilated aortic root. Right ventricular systolic pressure estimated to be 57 mmHg c/w pulmonary hyper tension. There is evidence of diastolic dysfunction. Ordering Physician: Rickie Chino Referring Physician: Annette Lopez Performed By: Diane Albert RDCS
[2020-11-12] MEDS: Tamsulosin HCl 0.4 MG Capsule PO (20:30)
[2020-11-13 00:05] VITALS: BP 133/66; PULSE 66; RESP 16; TEMP 36.8; O2SAT 94
[2020-11-13 03:00] VITALS: PULSE 67
[2020-11-13 06:03] LABS: ALB/GLOB Ratio 0.9 RATIO (0.9-2.4); AST(SGOT) 13 U/L (15-37); Alanine Aminotransfer ALT/SGPT 26 U/L (16-61); Albumin, Serum 3.1 g/dL (3.2-5.0); Alkaline Phosphatase 76 U/L (45-117); Anion Gap 5 (5-15); BUN 18 mg/dL (7-18); BUN/Creat Ratio 14.2 RATIO (10-20); Calcium,Total 8.6 mg/dL (8.5-10.1); Chloride 106 mmol/L (98-107); Creatinine, Serum 1.27 mg/dL (0.70-1.30); EST Glomerular Filtration Rate 58 mL/min (>60); Est Glom Filt Rate - Afr Amer 70 mL/min (>60); Estimated Creatinine Clearance 42.56 ml/min; Globulin 3.3 g/dL (2.2-4.2); Glucose 168 mg/dL (74-106); Protein, Total 6.4 g/dL (6.4-8.2); Sodium Level 137 mmol/L (136-145)
[2020-11-13 06:05] VITALS: BP 129/79; PULSE 85; RESP 16; TEMP 36.7; O2SAT 96
[2020-11-13 06:51] VITALS: PULSE 86
[2020-11-13] MEDS: Rivaroxaban 15 MG Tablet PO (08:52)
[2020-11-13] MEDS: Aspirin E.C. 81 MG Tablet PO (08:52)
[2020-11-13] MEDS: Lisinopril 40 MG Tablet PO (08:52)
[2020-11-13] MEDS: Glimepiride 1 MG Tablet PO (08:52)
[2020-11-13 10:46] VITALS: O2SAT 86; O2SAT 94
--- NOTE | 2020-11-13 11:07 | CASEMGMT ---
Addendum entered by Samantha Donis 11/13/20 12:18: Xarelto e-scribed to [facility] previously and call to [facility] pharmacy to verify coverage/co-pay. Per Tona at pharmacy, pt's co-pay for 1st script is $226.26 which is most likely deductible and pt provided with Xarelto 30 day free trial offer coupon at this time, voices understanding. oTna states 30 day Xarelto will be about $42 co-pay. Pt/ updated on all, voice understanding. Pt still awaiting portable tank from [facility] but voices no further questions/concerns/needs. Michelle ARMSTRONG CM Original Note: Per Michelle RN, pt does qualify for 2L w/ exertion and this RN CM to room to discuss with pt/daughter. After provided list of local in-network DME, pt states he would like [facility] as they would be the preferred provider. Script faxed to [facility] and call placed to them to notify of referral and discharge today, voice understanding. Pt also to be sent home on Xarelto, once med sent, CM to call and check coverage/co-pay. Michelle ARMSTRONG CM
--- NOTE | 2020-11-13 11:24 | PCM.DC ---
- Discharge Diagnoses Current Active Problems: Current Active and Chronic Problems (Last Reviewed 11/12/20 @ 12:[address] Rickie Chino, DO) Pulmonary emboli (Acute 11/12/20) Abdominal distention (Chronic) Dyspnea on exertion (Acute) Shortness of breath (Acute) Tachycardia (Acute) Thoracic aortic aneurysm (TAA) (Chronic) Stable dilatation of the ascending thoracic aorta with a transverse dimension of 4.[address] Scan 08/2019 Essential (primary) hypertension (Chronic) Hyperlipidemia (Chronic) You will use the following diet at home:: Calorie/Carbohydrate Controlled (specify 1200, 1400, etc) - 1800 Your food should be the consistency of: Regular Your liquids should be the consistency of: Regular/Thin Discharge Activity: Return to Normal Activity Call your doctor if you observe: Shortness of breath Allergies/Adverse Reactions: Allergies No Known Allergies Allergy (Verified 11/12/20 09:09) Medications to take at Discharge Lisinopril [Zestril] 40 mg PO DAILY 06/14/13 aspirin 81 mg tablet,delayed release 81 mg PO DAILY 08/27/19 glimepiride 1 mg tablet 1 mg PO DAILY 08/27/19 beet root 2 cap PO .QD 08/28/19 tamsulosin 0.4 mg capsule 0.4 mg PO DAILY cap 09/01/20 Rivaroxaban [Xarelto] 15 mg PO BIDCM #38 tablet 11/13/20 Rivaroxaban [Xarelto] 20 mg PO DAILY #30 tab 11/13/20 The following prescriptions were given: Rivaroxaban [Xarelto] 15 mg PO BIDCM #38 tablet Transmission Status: Pending to [id number] Rivaroxaban [Xarelto] 20 mg PO DAILY #30 tab Transmission Status: Pending to [facility] Primary Care Physician: Annette Lopez MD [Primary Care Provider] - Within 2 Weeks Test Results: Test results from this visit will be discussed in further detail at your follow-up appointment, if applicable. Proposed Discharge Date: 11/13/20
--- NOTE | 2020-11-13 11:26 | DS.PCM_ITS ---
Discharge Date and Diagnosis - Problem List Patient Problems: Active and Suspected Problems (Last Reviewed 11/12/20 @ 12:[address] Rickie Chino DO) Pulmonary emboli (Acute 11/12/20) Dyspnea on exertion (Acute) Shortness of breath (Acute) Tachycardia (Acute) Date of Admission: 11/12/20 Date of Discharge: 11/13/20 - Primary Discharge Diagnosis Acute Problems: Active Problems (Last Reviewed 11/12/20 @ 12:[address] Rickie Chino DO) Pulmonary emboli (Acute 11/12/20) Dyspnea on exertion (Acute) Shortness of breath (Acute) Tachycardia (Acute) - Secondary Discharge Diagnosis Chronic Problems: Chronic Problems (Last Reviewed 11/12/20 @ 12:[address] Rickie Chino DO) Abdominal distention (Chronic) Thoracic aortic aneurysm (TAA) (Chronic) Stable dilatation of the ascending thoracic aorta with a transverse dimension of 4.[address] Scan 08/2019 Essential (primary) hypertension (Chronic) Hyperlipidemia (Chronic) Hospital Course and Treatment Imaging Results: Clinical Impression(s) from Imaging Studies Chest CTA 11/12/20 09:25 IMPRESSION: Diffuse bilateral pulmonary emboli as described. Stable dilatation of the proximal ascending thoracic aorta. Electronically Signed: Edilberto Gillis MD at 10:40 EDT , Service support , Echocardiogram 11/12/20 12:13 Interpretation Summary The study was technically difficult. Left ventricular systolic function is normal. The estimated ejection fraction is 65 %. Mildly dilated right ventricle. Trivial mitral valve insufficiency. Trivial tricuspid valve insufficiency. Moderate focal aortic valve calcification. Mildly dilated aortic root. Right ventricular systolic pressure estimated to be 57 mmHg c/w pulmonary hypertension. There is evidence of diastolic dysfunction. Ordering Physician: Rickie Chino Referring Physician: Annette Lopez Performed By: Diane Albert RDCS Operations: None Procedures: 2-D Echocardiogram Summary of Care Provided: The patient is a 80 year old M presents with dyspnea on exertion that began October 01. At that time patient undergone EGD and felt short of breath afterwards. Patient had a CTA that showed bilateral PE and started on rivaroxaban. Patient was hypoxic with activity. Patient had echocardiogram that showed an EF of 65% with mildly dilated right ventricle, trivial mitral valve insufficiency, trivial tricuspid valve insufficiency and right ventricular systolic pressure 55 mmHg. 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 Patient has previously had a polysomnogram that was supposedly negative. Patient advised to be reevaluated for another polysomnogram is family is endorsing patient does have apnea episodes at night. 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 I told he and his daughter, who is a nurse, that he get another opinion to her apartment maintenance supervisor. Daughter states that she has a history of MTHFR mutation history of blood clots. At rest, patient's pulse ox was 94% on room air but with activity dropped down to 86%. Patient will require 2 L of oxygen with activity. [] Patient Problems: Active and Suspected Problems (Last Reviewed 11/12/20 @ 12:[address] Rickie Chino, DO) Pulmonary emboli (Acute 11/12/20) Dyspnea on exertion (Acute) Shortness of breath (Acute) Tachycardia (Acute) - Physical Exam Vitals/I&O's: Vital Signs Temp Pulse Resp BP Pulse Ox 36.7 C 86 16 129/79 H 94 11/13/20 06:05 11/13/20 06:51 11/13/20 06:05 11/13/20 06:05 11/13/20 10:46 Oxygen Flow Rate (L/min) [ 2 AMBULATING with Oxygen #1] Oxygen Delivery Method Room Air Weight: 102.5 kg Body Mass Index (BMI) 36.4 Intake and Output for Last 24 Hours 11/11/20 11/12/2021 23:59 23:59 23:59 Intake Total 720 / 840 180 / 180 Output Total 0 / 0 Balance 720 / 840 180 / 180 General: Alert, No apparent distress HEENT: Atraumatic, Normocephalic Oral: Moist Mucosa, No Gingival or Mucosal Lesions/ Ulcerations Neck: No Nodes, Thyroid Normal Size and Texture Lungs: Clear to auscultation, Normal air movement, No rhonchi, No wheeze Cardiovascular: Regular rate, Regular Rhythm, Normal S1, Normal S2 Abdomen: Bowel Sounds Present, Soft, Non Tender, Non-Distended Psych/Mental Status: Normal Affect, Appropriate Microbiology Past 72 Hours 11/12/20 09:40 Nasal Secretion SARS-CoV-2 Antigen (Rapid) - Final Laboratory Results 11/12/20 12:55: Troponin I < 0.015 11/12/20 15:48: Troponin I < 0.015 11/13/20 05:24: Sodium 137, Potassium 4.0, Chloride 106, Carbon Dioxide 26.0, Anion Gap 5, BUN 18, Creatinine 1.27, Estim Creat Clear Calc 42.56, Est GFR (MDRD) Af Amer 70, Est GFR (MDRD) Non-Af 58 L, BUN/Creatinine Ratio 14.2, Glucose 168 H, Calcium 8.6, Total Bilirubin 0.40, AST 13 L, ALT 26, Alkaline Phosphatase 76, Total Protein 6.4, Albumin 3.1 L, Globulin 3.3, Albumin/Globulin Ratio 0.9 Current Medications Acetaminophen (Acetaminophen 325 Mg Tablet) 650 mg PO Q6H PRN PRN PRN Reason: Pain Score 1-10/Temp > 100.7 F Aspirin (Aspirin E.C. 81 Mg Tablet) [facility] Admin: 11/13/20 08:52 Dose: 81 mg Documented by: Glimepiride (Glimepiride 1 Mg Tablet) [facility] Last Admin: 11/13/20 08:52 Dose: 1 mg Documented by: Sodium Chloride () 250 mls @ 15 mls/hr IV .[id number] PRN PRN Reason: Saline Flush Sodium Chloride () 250 mls @ 15 mls/hr IV .[id number] PRN PRN Reason: Additional IVPB Infusion Lisinopril (Lisinopril 40 Mg Tablet) 40 mg PO DAILY [facility] Last Admin: 11/13/20 08:52 Dose: 40 mg Documented by: Nutritional Formula (Lactose Free) (Ensure Enlive 120 Ml Liquid) 120 ml PO 4X/DAY [facility] Last Admin: 11/13/20 08:52 Dose: 120 ml Documented by: Rivaroxaban (Rivaroxaban 15 Mg Tablet) 15 mg PO BIDCM [facility] Stop: 12/03/20 17:01 Last Admin: 11/13/20 08:52 Dose: 15 mg Documented by: Sodium Chloride (0.9% Saline Lock 10 Ml Syringe) 10 - 40 ml IV UD PRN PRN Reason: SALINE FLUSH Tamsulosin HCl (Tamsulosin Hcl 0.4 Mg Capsule) 0.4 mg PO QHS [facility] Last Admin: 11/12/20 20:30 Dose: 0.4 mg Documented by: Discharge Diet: No Restrictions Discharge Activity: Return to Normal Activity Call your doctor if you observe: Shortness of breath Home Medications: Medications to take at Discharge Lisinopril [Zestril] 40 mg PO DAILY 06/14/13 aspirin 81 mg tablet,delayed release 81 mg PO DAILY 08/27/19 glimepiride 1 mg tablet 1 mg PO DAILY 08/27/19 beet root 2 cap PO .QD 08/28/19 tamsulosin 0.4 mg capsule 0.4 mg PO DAILY cap 09/01/20 Rivaroxaban [Xarelto] 15 mg PO BIDCM #38 tablet 11/13/20 Rivaroxaban [Xarelto] 20 mg PO DAILY #30 tab 11/13/20 Following Prescriptions Were Given to Patient: Rivaroxaban [Xarelto] 15 mg PO BIDCM #38 tablet Transmission Status: Pending to [facility] Rivaroxaban [Xarelto] 20 mg PO DAILY #30 tab Transmission Status: Pending to [facility] Primary Care Physician: Annette Lopez MD [Primary Care Provider] - Within 2 Weeks Disposition: Home Minutes spent on discharge:: 28 Medical Necessity - Tobacco Use Smoking Status: Never smoker Meaningful Use Info Meaningful Use Diagnoses (Choose all that apply): VTE - VTE Anticoag overlap given w/in hospital stay or rx'd at ne?: No Pt receive overlap for 5 days?: No Reason overlap not ordered, prescribed, or given for 5 days: Treatment Not Indicated OBSV E&M: 42218 Observation care discharge
[2020-11-13 11:40] VITALS: BP 138/86; PULSE 98; RESP 20; TEMP 36.8; O2SAT 94
--- NOTE | 2020-11-13 12:36 | PHA.DC.MC ---
Pharmacy Service has performed discharge medication reconciliation and counseling for this patient. The patient was counseled on the following discharge medications and changes in medications for homegoing were reviewed. 1. XARELTO The Reason for Use, instructions for use, and potential side effects were reviewed for all new medications. The patient's questions regarding all of their medications were answered. The patient was able to verbally demonstrate an understanding of their discharge medications. Home Medications Lisinopril [Zestril] 40 mg PO DAILY 06/14/13 aspirin 81 mg tablet,delayed release 81 mg PO DAILY 08/27/19 glimepiride 1 mg tablet 1 mg PO DAILY 08/27/19 beet root 2 cap PO .QD 08/28/19 tamsulosin 0.4 mg capsule 0.4 mg PO DAILY cap 09/01/20 Rivaroxaban [Xarelto] 15 mg PO BIDCM #38 tablet 11/13/20 Rivaroxaban [Xarelto] 20 mg PO DAILY #30 tab 11/13/20 The patient's discharge medication list was reviewed for discrepancies and discrepancies were resolved.
--- NOTE | 2020-11-13 15:15 | CASEMGMT ---
NATHANIEL GRAVES NOTE: Call received from pt. 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 He states they informed him the card could not be used d/t he has already used one in the past and that the cost for the Xarelto was $247. Pt states he has been on Xarelto in the past, approx 3 yrs ago. NATHANIEL GRAVES explained to pt that Xarelto savings card can only be used once in a lifetime. Pt states they did go ahead and picking crew supervisor the Xarelto and that his did pay the $247 for it. Call placed to [facility] pharmacy. They state that the $247 was for the 15 mg tablets and that $200 of that was applied towards pt's deductible. Pharmacist states that there was no charge for the 20 mg tablets. She states she does not have access to what pt's deductible amt is, but that, from the information she has, it looks like pt has a $0 balance on his deductible remaining. She states the extra $47 that they paid for may have been the co-pay. Call placed back to pt and he was made aware of the above information that the pharmacist provided to this NATHANIEL GRAVES. NATHANIEL GRAVES advised pt to contact his insurance co to inquire about his deductible and what the cost of additional refills will be. NATHANIEL GRAVES advised pt to obtain this information prior to his f/u appt with his PCP and if the [id number] cost is not affordable for refills, to discuss other options with his PCP. Pt voices understanding and states he will contact his insurance co. He voices appreciation of the information. He denies having other questions/concerns/needs. Chester BOOKER RN, CM
== END 2020-11-13 11:25 | disposition home or self-care (01) ==
LOC: ED 11:27 → PCU 12:36
PROVIDERS: Emergency Provider Emergency Medicine; PCP Internal Medicine
DX: I26.99 Other pulmonary embolism without acute cor pulmonale (principal); R06.02 Shortness of breath; I71.2 Thoracic aortic aneurysm, without rupture; R00.0 Tachycardia, unspecified; E78.5 Hyperlipidemia, unspecified; R94.31 Abnormal electrocardiogram [ECG] [EKG]; I08.3 Combined rheumatic disorders of mitral, aortic and tricuspid valves; N18.9 Chronic kidney disease, unspecified; E11.22 Type 2 diabetes mellitus with diabetic chronic kidney disease; I12.9 Hypertensive chronic kidney disease with stage 1 through stage 4 chronic kidney disease, or unspecified chronic kidney disease; E66.9 Obesity, unspecified; Z86.711 Personal history of pulmonary embolism; Z79.899 Other long term (current) drug therapy; Z79.84 Long term (current) use of oral hypoglycemic drugs; Z79.82 Long term (current) use of aspirin
CPT/HCPCS: 36415; 71275; 80048; 80053; 83880; 84484; 85025; 85610; 87426; 93005; 93225; 93226; 93306; 97802; 99218; 99283; Q9967; A4216; G0378

== ENCOUNTER → 2020-11-13 11:59 | Outpatient (CLI) | payer MEDICARE, SELFPAY ==
[2020-11-10 13:26] VITALS: BMI 36.3
[2020-11-12 12:18] VITALS: BMI 36.4
== END ==
PROVIDERS: PCP Internal Medicine; Referring Provider Nurse Practitioner Family; Visit Provider Nurse Practitioner Family
DX: I71.2 Thoracic aortic aneurysm, without rupture (principal); R06.02 Shortness of breath; I10 Essential (primary) hypertension; R00.0 Tachycardia, unspecified
CPT/HCPCS: 93225; 93226

== ENCOUNTER 2020-12-19 12:41 | Inpatient (IN) | payer MEDICARE, SELFPAY ==
[2020-11-12 12:18] VITALS: BMI 36.4
[2020-12-19] VITALS (10 sets, daily range): BP systolic 124–152; BP diastolic 72–82; PULSE 56–68; RESP 16–18; TEMP 36.3–36.9; O2SAT 93–96; BMI 38.0; BMI 37.4
--- NOTE | 2020-12-19 12:54 | VDLE_ITS ---
Reason For Study: swelling RIGHT LEFT GSV is normal. GSV is normal. CFV is compressible, spontaneous, phasic, CFV is compressible, spontaneous, phasic, competent and demonstrates normal competent, and demonstrates normal augmentation. augmentation. FV is compressible, spontaneous, phasic, FV is compressible, spontaneous, phasic, competent and demonstrates normal competent and demonstrates normal augmentation. augmentation. POP V is compressible, spontaneous, phasic, POP V is compressible, spontaneous, phasic, competent and demonstrates normal competent and demonstrates normal augmentation. augmentation. T/P Trunk is compressible. T/P Trunk is compressible. PTV is compressible. PTV is compressible. RT PerV is compressible. LT PerV is compressible. Heterogeneous area behind the knee measuring 1.04 x 3.25 cm. Area is nonvascular. Procedure This is a venous duplex using B-mode, color flow and spectral Doppler. Exam performed portable in ED. The exam was diagnostic. A preliminary report was called and/or faxed to Dr. Sutton. VL/Venous Duplex US - Billy Extrem Interpretation Summary No evidence for acute deep venous thrombosis bilateral lower extremities with p atent and compressible bilateral great saphenous veins. 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 Clinical correlation would be appropriate. Ordering Physician: MD Lesley Remus Performed By: Esteban Castro RVT
--- NOTE | 2020-12-19 14:13 | RAD_ITS ---
STUDY: X-RAY CHEST REASON FOR EXAM: Male, 80 years old. sob TECHNIQUE: AP COMPARISON: 12/30/2018 FINDINGS: The lungs are clear and expanded. There is no demonstrated pleural abnormality. Normal size heart. Normal mediastinum and rosales. Normal visualized pulmonary arteries. There is atherosclerotic tortuosity of the aortic arch and descending thoracic aorta. No acute bony process. There is no demonstrated abnormality of the visualized soft tissue structures of the upper abdomen. RAD/Chest 1 View (Portable) IMPRESSION: Stable, nonacute portable x-ray examination of the chest. Electronically Signed: Ted So MD (Brooks) at 14:53 EDT , Service support ,
--- NOTE | 2020-12-19 14:14 | EKG12_ITS ---
Test Reason : Blood Pressure : / mmHG Vent. Rate : 058 BPM Atrial Rate : 058 BPM P-R Int : 168 ms QRS Dur : 100 ms QT Int : 422 ms P-R-T Axes : 022 -20 009 degrees QTc Int : 414 ms Sinus bradycardia Minimal voltage criteria for LVH, may be normal variant Anterolateral infarct , age undetermined Abnormal ECG Confirmed by SVETA WALKER, ASHA ([id number]), newspaper or periodical editor JUAN GALINDO ([id number]) on 12/22/2020 9:38:34 AM Referred By: Confirmed By:ASHA BANGURA MD
[2020-12-19 14:33] LABS: Absolute Lymphocyte Count 3.11 X10^3/uL (0.83-4.51); Absolute Neutrophil Count 4.4 X10^3/uL (2.0-7.7); Basophil# 0.05 X10^3/uL; Basophil% 0.6 % (0-1); Eosinophil# 0.34 X10^3/uL; Eosinophils% 3.8 % (0-5); Hematocrit 44.5 % (40-54); Hemoglobin 14.8 g/dL (13.0-16.5); Lymphocyte # 3.11 X10^3/ul (0.83-4.51); Lymphocyte % 35.1 % (19-41); Mean Corp Hgb Conc 33.3 g/dL (32-36); Mean Corpuscular Hgb 31.3 pg (27.0-32.0); Mean Corpuscular Volume 94.1 fL (80-94); Mean Platelet Vol. 9.1 fl (6.2-12.0); Monocyte# 0.92 X10^3/uL; Monocyte% 10.4 % (0-10); NRBC Flagged by Analyzer 0 % (0-5); Neutrophil # 4.42 X10^3/uL (2.7-7.7); Neutrophil % 49.8 % (47-70); Platelet Count 283 K/mm3 (150-450); RBC Distribution Width CV 12.7 % (11.6-14.6); RBC Distribution Width SD 43.8 fl (35.1-43.9); Red Blood Count 4.73 M/mm3 (4.6-6.2); White Blood Count 8.9 K/mm3 (4.4-11.0)
[2020-12-19 15:08] LABS: Anion Gap 4 (5-15); BUN 19 mg/dL (7-18); BUN/Creat Ratio 15.7 RATIO (10-20); Calcium,Total 8.7 mg/dL (8.5-10.1); Chloride 109 mmol/L (98-107); Creatinine, Serum 1.21 mg/dL (0.70-1.30); EST Glomerular Filtration Rate 61 mL/min (>60); Est Glom Filt Rate - Afr Amer 74 mL/min (>60); Estimated Creatinine Clearance 43.06 ml/min; Glucose 100 mg/dL (74-106); Sodium Level 139 mmol/L (136-145)
--- NOTE | 2020-12-19 16:08 | EX.ED.DYSGE1 ---
HPI History of Present Illness Chief Complaint: Lower Extremity Injury Informant: patient and family Narrative Narrative: 80-year-old male presenting with bilateral lower extremity swelling. He complains of right lower extremity pain and swelling greater than left. He was diagnosed with PE and started on Xarelto last month. He denies injury to his legs. He states he has been very short of breath with any type of exertion. He denies chest pain. Denies fever or cough. He states he has been gaining weight and feels bloated. Denies other complaints. [facility] Medical History (Updated 12/19/20 @ 16:[address] Sharon Luciano MD) Abdominal distention Anal fistula Benign neoplasm of colon Bicuspid aortic valve CKD (chronic kidney disease) Diverticulosis DVT (deep venous thrombosis) Dyspnea on exertion Essential (primary) hypertension GI bleed History of pulmonary embolism (10/2013) Hyperlipidemia Kidney stone Obesity Shortness of breath Tachycardia Thoracic aortic aneurysm (TAA) Type 2 diabetes mellitus Home Medications lisinopril 40 mg PO DAILY 06/14/13 [History Last Taken 11/11/20] aspirin 81 mg tablet,delayed release 81 mg PO DAILY 08/27/19 [History Last Taken 11/11/20] glimepiride 1 mg tablet 1 mg PO DAILY 08/27/19 [History Last Taken 11/11/20] tamsulosin 0.4 mg capsule 0.4 mg PO DAILY cap 09/01/20 [History Last Taken 11/11/20] rivaroxaban 20 mg PO DAILY #30 tab 11/13/20 [Rx Last Taken Unknown] cholecalciferol (vitamin D3) [Vitamin D3] 125 mcg PO DAILY 12/19/20 [History Last Taken Unknown] mecobalamin (vitamin B12) [B12 Active] 2,500 mcg PO DAILY 12/19/20 [History Last Taken Unknown] omega-3 fatty acids [[place] 3] 1,000 mg PO QODAY 12/19/20 [History Last Taken Unknown] omeprazole 40 mg PO DAILY 12/19/20 [History Last Taken Unknown] Allergy/AdvReac Type Severity Reaction Status Date / Time No Known Allergies Allergy Verified 12/19/20 12:41 Surgical History History of carpal tunnel release History of colonoscopy History of rectal surgery History of shoulder surgery Social History (Updated 11/10/20 @ 15:06 by Deandre Mna [employer], [employer]-C) Smoking Status: Never smoker alcohol intake: never substance use type: does not use caffeine: Yes Type: carbonated beverages and coffee Number of servings: 1 ROS ROS ED Constitutional Constitutional ED: Denies fever(s) Eyes Eyes: Denies change in vision ENT ENT ED: Denies rhinorrhea or sore throat Cardiovascular Cardiovascular: Denies chest pain or palpitations Respiratory/Chest Respiratory/Chest: Reports dyspnea; Denies cough Gastrointestinal Gastrointestinal: Denies abdominal pain, diarrhea, nausea or vomiting Genitourinary Genitourinary ED: Denies dysuria Musculoskeletal Musculoskeletal: Reports other Details: Bilateral lower extremity swelling ; Denies myalgias Integumentary Denies rash Neurologic Neurologic: Denies headache(s) Psychiatric Psychiatric: Denies suicidal thoughts EXAM Physical Exam Const Vital Signs: 12/19/20 12:42 12/19/20 14:21 12/19/20 15:58 Temperature 97.3 F L 97.9 F Temperature Source Temporal Oral Pulse Rate 62 57 L 56 L Respiratory Rate 18 16 16 Blood Pressure 145/78 H 124/82 H 152/79 H Blood Pressure Mean 100 96 103 Pulse Ox 96 Oxygen Delivery Method Room Air Positive well nourished and well developed General Appearance ED: well developed HEENT Reports normocephalic and head/scalp atraumatic Eyes PERRL and EOMs intact bilaterally Neck supple General: Negative for tenderness Chest Wall inspection of chest normal Resp normal respiratory effort and clear to auscultation bilaterally Cardio regular rate and regular rhythm GI non-tender and non-distended Palpation: soft; Negative for guarding or rebound tenderness present no CVA tenderness Extremity General Extremety ED: Yes edema and tenderness General Extremity: edema Neuro oriented x3 Sensorium / Orientation: alert Psych mental status grossly normal MDM MDM MDM Narrative Medical decision making narrative: Bilateral lower extremity venous Doppler shows heterogeneous area behind right knee which is nonvascular, consistent with Johnson's cyst. No evidence of DVT. Labs are reviewed. EKG is sinus bradycardia rate of 58 with no acute ischemic changes. Patient is concerned about his recent weight gain, leg swelling, and dyspnea with exertion. Will discuss with hospitalist for admission. Lab Data Attestation: I reviewed the patient's lab results. Labs: Laboratory Results - last 24 hr 12/19/20 12/19/20 12/19/20 14:25 14:25 14:25 WBC 8.9 RBC 4.73 Hgb 14.8 Hct 44.5 MCV 94.1 H MCH 31.3 MCHC 33.3 RDW Std Deviation 43.8 RDW Coeff of Tee 12.7 Plt Count 283 MPV 9.1 Immature Gran % (Auto) 0.300 Neut % (Auto) 49.8 Lymph % (Auto) 35.1 [place] % (Auto) 10.4 H Eos % (Auto) 3.8 Baso % (Auto) 0.6 Absolute Neuts (auto) 4.4 Absolute Lymphs (auto) 3.11 Nucleated RBC % 0 Sodium 139 Potassium 4.0 Chloride 109 H Carbon Dioxide 26.0 Anion Gap 4 L BUN 19 H Creatinine 1.21 Estim Creat Clear Calc 43.06 Est GFR (MDRD) Af Amer 74 Est GFR (MDRD) Non-Af 61 BUN/Creatinine Ratio 15.7 Glucose 100 Calcium 8.7 Troponin I < 0.015 B-Natriuretic Peptide 20.0 Radiography Chest X-Ray - ED: 1 View, Read by ED Physician and Read by Radiologist Diagnostic Testing: Radiology Impression Chest X-Ray 12/19/20 14:13 IMPRESSION: Stable, nonacute portable x-ray examination of the chest. Electronically Signed: Ted So MD (Brooks) at 14:53 EDT , Service support , EKG Initial EKG: Attestation: I personally reviewed and interpreted this EKG as follows: Interpretation: No Acute Injury Pattern and Sinus Bradycardia Discharge Plan Triage Chief Complaint: Lower Extremity Injury ED Provider: Sharon Luciano Dx/Rx/DC Orders Clinical Impression: Edema, peripheral, NIEVES (dyspnea on exertion) Primary Care Provider: Annette Lopez Disposition Disposition: Acute Care Hospital [facility]
[2020-12-19 16:19] LABS: AST(SGOT) 17 U/L (15-37); Alanine Aminotransfer ALT/SGPT 25 U/L (16-61); Albumin, Serum 3.5 g/dL (3.2-5.0); Alkaline Phosphatase 72 U/L (45-117); Bilirubin, Direct 0.14 mg/dL (0.00-0.30); Globulin 3.4 g/dL (2.2-4.2); Protein, Total 6.9 g/dL (6.4-8.2)
--- NOTE | 2020-12-19 17:06 | CT_ITS ---
STUDY: CTA CHEST REASON FOR EXAM: Male, 80 years old. dyspnea RADIATION DOSAGE (If Supplied By Facility): CTDIvol = ( 15.03 ) mGy, DLP = ( 535.19 ) mGycm TECHNIQUE: The examination was performed with the intravenous administration of IV 100mL Isovue-370. Post-processing of the angiographic images was performed, with multiplanar reformation and 3D reconstruction. Individualized dose optimization techniques were used for this CT. COMPARISON: 11/12/2020 FINDINGS: Normal enhancement of the main pulmonary artery and right and left pulmonary arteries. Decreased size and number of pulmonary emboli evident on the prior study with a few scattered nonocclusive segmental pulmonary emboli (image 112 series 2 right lower lobe, image 15 series 2 left lower lobe). There is no demonstrated pulmonary embolism. Similar ascending thoracic aortic ectasia. There is no demonstrated aortic dissection. Normal heart and pericardium. Normal mediastinum. There are calcified left hilar lymph nodes. Normal visualized trachea and bronchi. The lungs are well expanded. Normal pulmonary parenchyma. Normal pleura. Normal chest wall structures. There are degenerative changes of thoracic spine. Normal visualized upper abdomen. CT/CTA Chest W/WO Contrast IMPRESSION: 1. Favorable change. Decreased size, number and extent of pulmonary embolism. Mild residual segmental pulmonary emboli in the lower lobes. Electronically Signed: Ted So MD (Brooks) at 18:00 EDT , Service support ,
[2020-12-19 18:05] LABS: Bedside Glucose 89 mg/dL (70-110)
--- NOTE | 2020-12-19 20:01 | HP.PCM.HOS_ITS ---
HPI - General General Date of Admission: 12/19/20 HPI Narrative MARCUS LOPEZ, is a 80 M who presents to the emergency department [facility] on 12/19/2020 with complaints of shortness of breath, decreased energy, weight gain of 10 pounds over 2 months and bilateral lower extremity edema. He was diagnosed with bilateral pulmonary embolisms in October of this past year and was started on Xarelto. He reports that he has had previous DVTs/PEs after surgical intervention. He indicates that this exertional shortness of breath and fatigue has been ongoing but is unable to giv e me a timeframe. He believes that it has been less than a year. He states that when he wears a mask he gets short of breath but his oxygen levels are never not low when they check them on his pulse oximeter. He does put oxygen on and this relieves his symptoms of shortness of breath. He reports increased abdominal girth and lower extremity edema but reports the edema is significantly better today than it was yesterday. He reports that he is missed no doses of his Xarelto. And it seems his primary concern is his decreased tolerance to activities. He states he is always been active and he is noticed that this has declined. His vital signs are fairly unremarkable in the emergency department. Oxygen saturations are 94 to 96% on room air. He has a normal CBC and a normal BMP. His LFTs are normal as well. A troponin was obtained and it was unremarkable. A BNP was obtained and it was 20. His EKG is unremarkable. After admission I ordered a CTA of his chest and this shows febrile change with decreased size in the number and extent of his pulmonary emboli with mild residual segmental pulmonary emboli in the lower lobes. The study was otherwise unremarkable. He will be admitted to PCU for further work-up. [facility] Medical History (Updated 12/19/20 @ 20:[address] Estrella Ott, ) Abdominal distention Anal fistula Benign neoplasm of colon Bicuspid aortic valve BPH (benign prostatic hyperplasia) CKD (chronic kidney disease) Diverticulosis DVT (deep venous thrombosis) Dyspnea on exertion Essential (primary) hypertension GI bleed History of pulmonary embolism (10/2013) Hyperlipidemia Kidney stone Obesity Shortness of breath Tachycardia Thoracic aortic aneurysm (TAA) Type 2 diabetes mellitus Home Medications lisinopril 40 mg PO DAILY 06/14/13 [History Last Taken 12/19/20] aspirin 81 mg tablet,delayed release 81 mg PO DAILY 08/27/19 [History Last Taken 12/19/20] glimepiride 1 mg tablet 1 mg PO DAILY 08/27/19 [History Last Taken 12/19/20] tamsulosin 0.4 mg capsule 0.4 mg PO DAILY cap 09/01/20 [History Last Taken 12/19/20] cholecalciferol (vitamin D3) [Vitamin D3] 125 mcg PO DAILY 12/19/20 [History Last Taken 12/19/20] mecobalamin (vitamin B12) [B12 Active] 2,500 mcg PO DAILY 12/19/20 [History Last Taken 12/19/20] omega-3 fatty acids [[place] 3] 1,000 mg PO QODAY 12/19/20 [History Last Taken 12/18/20] omeprazole 40 mg PO QHS 12/19/20 [History Last Taken 12/18/20] rivaroxaban 20 mg PO DAILY 12/19/20 [History Last Taken 12/19/20] Allergy/AdvReac Type Severity Reaction Status Date / Time No Known Allergies Allergy Verified 12/19/20 12:41 Surgical History History of carpal tunnel release History of colonoscopy History of rectal surgery History of shoulder surgery Social History Smoking Status: Never smoker alcohol intake: never substance use type: does not use caffeine: Yes Type: carbonated beverages and coffee Number of servings: 1 ROS Review of Systems ROS Unobtainable: Denies due to encephalopathy, due to endotracheal tube, due to mental condition, due to mental status or other Constitutional Constitutional: Reports change in weight; Denies anorexia, chills, fatigue, fever(s), malaise, night sweats, weakness or other Eyes Eyes: Denies blurry vision, change in eye color, change in vision, discharge from eye(s), double vision, erythema, eye pain, loss of vision or other ENT HEENT: Denies abnormal hearing, dysphagia, ear pain, epistaxis, headache(s), hearing loss, nasal congestion, nasal discharge, post nasal drip, sinus pressure, sore throat or other Cardiovascular Cardiovascular: Reports dyspnea on exertion and edema; Denies chest pain, claudication, lightheadedness, orthopnea, palpitations, paroxysmal nocturnal dyspnea, rapid heart rate, syncope or other Respiratory/Chest Respiratory/Chest: Reports dyspnea and shortness of breath with exertion; Denies cough, excessive phlegm production, hemoptysis, productive cough, shortness of breath at rest, wheezing or other Gastrointestinal Gastrointestinal: Reports other Details: Increased abdominal girth ; Denies abd ominal pain, coffee ground emesis, constipation, diarrhea, dyspepsia, hematemesis, hematochezia, loose stools, melena, nausea or vomiting Musculoskeletal Musculoskeletal: Denies arthralgias, back pain, joint pain, joint stiffness, joint swelling, myalgias, neck pain or other Neurologic Neurologic: Reports tingling and other Details: 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 ; Denies abnormal gait, abnormal speech, confusion, disequilibrium, dizziness, focal weakness, headache(s), numbness, paresthesias, seizure-like activity, seizures, syncope or tremor(s) Psychiatric Psychiatric: Denies anxiety, depression, homicidal ideation, suicidal ideation or other Endocrine Endocrinology: Denies change in body appearance, cold intolerance, excessive sweating, heat intolerance, polydipsia, polyuria or other Hematologic/Lymphatic Hematologic/Lymphatic: Denies anemia, easy bleeding, easy bruising, lymphadenopathy or other Allergic/Immunologic Allergic/Immunologic: Denies rhinitis, hives, eczemia, asthma or other Vital Signs Vital Signs Vital Signs: 12/19/20 12:42 12/19/20 14:21 12/19/20 15:58 Temperature 97.3 F L 97.9 F Temperature Source Temporal Oral Pulse Rate 62 57 L 56 L Respiratory Rate 18 16 16 Respiratory Effort Respiratory Depth Respiratory Pattern Blood Pressure 145/78 H 124/82 H 152/79 H Blood Pressure Mean 100 96 103 Blood Pressure Source Blood Pressure Position Blood Pressure Location Pulse Ox 96 Oxygen Delivery Method Room Air 12/19/20 16:42 12/19/20 16:45 12/19/20 16:48 Temperature 97.8 F Temperature Source Oral Pulse Rate 58 L 63 Respiratory Rate 18 Respiratory Effort Normal Non-Labored Respiratory Depth Normal Respiratory Pattern Normal Blood Pressure 135/72 H Blood Pressure Mean 93 Blood Pressure Source Monitor Blood Pressure Position Semi-Fowlers Blood Pressure Location Left Arm Pulse Ox 95 Oxygen Delivery Method Room Air Room Air 12/19/20 19:11 Temperature Temperature Source Pulse Rate Respiratory Rate 18 Respiratory Effort Normal Non-Labored Respiratory Depth Normal Respiratory Pattern Normal Blood Pressure Blood Pressure Mean Blood Pressure Source Blood Pressure Position Blood Pressure Location Pulse Ox 94 Oxygen Delivery Method Room Air Physical Exam Const alert, oriented x3, no apparent distress, average body habitus, healthy appearing and well nourished Constitutional Narrative: Older white male sitting up in bed, at bedside, patient appears comfortable and nontoxic General Appearance: cooperative HEENT normocephalic, head/scalp atraumatic, hearing grossly normal bilaterally, moist oral mucous membranes and oropharynx normal; Negative for dentition normal HEENT Narrative: Mallampati 3, dentures in place, no thrush Mouth: oral and palatal mucosa normal and No moist mucous membranes abnormal Eyes PERRL, EOMs intact bilaterally and conjunctivae normal Neck no lymphadenopathy, supple, no JVD and no carotid bruits Resp normal respiratory effort, no retractions, no use of accessory muscles and clear to auscultation bilaterally Auscultation: Negative for crackles, rales, rhonchi or wheezes Cardio regular rate, regular rhythm, S1 normal heart sound, S2 normal heart sound, no murmurs, no rub, no gallops, no clicks and no JVD GI normal to inspection, nondistended, normoactive bowel sounds, soft to palpation, non-tender and non-distended; Negative for hepatosplenomegaly Auscultation: Negative for hyperactive bowel sounds or hypoactive bowel sounds Palpation: Negative for tender, guarding or hernia Extremity full ROM Extremity Narrative: Trace bilateral lower extremity pitting edema, no clubbing or cyanosis Peripheral Pulses: Yes pulses 2+ throughout Skin no rashes or lesions noted, no wounds, skin turgor normal, no jaundice, no petechiae and no mottling Neuro oriented x3, CN's II-XII intact bilaterally, moves all extremities and no focal motor deficits Sensorium / Orientation: awake, alert, oriented to person, oriented to place and oriented to time Speech: speech normal Motor Exam: strength 5/5 throughout Psych affect normal Mood & Affect: Negative for depressed or anxious Lab / Micro Data Attestation: I reviewed the patient's lab results. Result Diagrams: 12/19/20 14:25 12/19/20 14:25 Labs: Laboratory Results - last 24 hr 12/19/20 12/19/20 12/19/20 14:25 14:25 14:25 WBC 8.9 RBC 4.73 Hgb 14.8 Hct 44.5 MCV 94.1 H MCH 31.3 MCHC 33.3 RDW Std Deviation 43.8 RDW Coeff of Tee 12.7 Plt Count 283 MPV 9.1 Immature Gran % (Auto) 0.300 Neut % (Auto) 49.8 Lymph % (Auto) 35.1 [place] % (Auto) 10.4 H Eos % (Auto) 3.8 Baso % (Auto) 0.6 Absolute Neuts (auto) 4.4 Absolute Lymphs (auto) 3.11 Nucleated RBC % 0 Sodium 139 Potassium 4.0 Chloride 109 H Carbon Dioxide 26.0 Anion Gap 4 L BUN 19 H Creatinine 1.21 Estim Creat Clear Calc 43.06 Est GFR (MDRD) Af Amer 74 Est GFR (MDRD) Non-Af 61 BUN/Creatinine Ratio 15.7 Glucose 100 Calcium 8.7 Total Bilirubin Direct Bilirubin AST ALT Alkaline Phosphatase Troponin I < 0.015 B-Natriuretic Peptide 20.0 Total Protein Albumin Globulin POC Glucose 12/19/20 12/19/20 12/19/20 14:25 18:01 18:05 WBC RBC Hgb Hct MCV MCH MCHC RDW Std Deviation RDW Coeff of Tee Plt Count MPV Immature Gran % (Auto) Neut % (Auto) Lymph % (Auto) [place] % (Auto) Eos % (Auto) Baso % (Auto) Absolute Neuts (auto) Absolute Lymphs (auto) Nucleated RBC % Sodium Potassium Chloride Carbon Dioxide Anion Gap BUN Creatinine Estim Creat Clear Calc Est GFR (MDRD) Af Amer Est GFR (MDRD) Non-Af BUN/Creatinine Ratio Glucose Calcium Total Bilirubin 0.40 Direct Bilirubin 0.14 AST 17 ALT 25 Alkaline Phosphatase 72 Troponin I < 0.015 B-Natriuretic Peptide Total Protein 6.9 Albumin 3.5 Globulin 3.4 POC Glucose 89 Radiology Impression Chest X-Ray 12/19/20 14:13 IMPRESSION: Stable, nonacute portable x-ray examination of the chest. Electronically Signed: Ted So MD (Brooks) at 14:53 EDT , Service support , Chest CTA 12/19/20 17:06 IMPRESSION: 1. Favorable change. Decreased size, number and extent of pulmonary embolism. Mild residual segmental pulmonary emboli in the lower lobes. Electronically Signed: Ted So MD (Brooks) at 18:00 EDT , Service support , Assessment & Plan Assessment/Plan (1) Pulmonary emboli: (2) Edema, peripheral: (3) NIEVES (dyspnea on exertion): (4) Abdominal distention: (5) Thoracic aortic aneurysm (TAA): QUALIFIERS: Presence of rupture: without rupture Qualified Code(s): I71.2 - Thoracic aortic aneurysm, without rupture (6) Essential (primary) hypertension: (7) Hyperlipidemia: (8) Diabetes mellitus, type 2: (9) Esophagitis: PLAN: Edema/dyspnea/decreased exercise tolerance -Work-up thus far is negative -Patient has stable renal function, no signs of active heart failure with a normal BNP and a negative troponin, and no signs of liver disease -He did have an echo in October 2020 when he was diagnosed with his new pulmonary emboli that showed right ventricular systolic pressure of 57 mmHg -Is unclear if this is acute or chronic related to his bilateral diffuse pulmonary emboli -CTA of his chest on this admission is unremarkable for new clot and in fact shows diminishing old clot in no acute pulmonary pathology -Cycle troponin -Check echo--> if right ventricular systolic pressure still elevated his shor tness of breath may be related to RV dysfunction -Lasix 40 mg IV push x1 dose and reevaluate in a.m. for further needs -If he does have RV dysfunction he may need to be discharged on diuretics -Consider stress test depending on above work-up -Incentive spirometer -Check daily weights -Continue Xarelto Recent pulmonary emboli -Continue Xarelto -See above work-up CKD stage II -Serum creatinine appears stable -Continue to monitor DM-2 -Hold home oral meds -SSI with before meals and at bedtime blood sugars HTN -Continue lisinopril Esophagitis -Patient was recently diagnosed per an EGD -Continue PPI DVT prophylaxis -Patient is fully anticoagulated CODE STATUS -Patient full code Visit Charges Inpatient E&M: 98770 Init Hosp L3
[2020-12-19] MEDS: Furosemide 40 MG/4 ML Vial IV (20:53)
[2020-12-19] MEDS: 0.9% Saline Lock 10 ML Syringe IV (20:54)
[2020-12-19 21:30] LABS: Bedside Glucose 158 mg/dL (70-110)
[2020-12-19] MEDS: Insulin Lispro 100 UNIT/ML INSULN.PEN SC (21:30)
[2020-12-19] MEDS: Pantoprazole Sodium 40 MG Tablet PO (21:31)
[2020-12-20 02:28] VITALS: BP 114/52; PULSE 72; RESP 16; TEMP 36.6; O2SAT 93
[2020-12-20 03:00] VITALS: PULSE 64
[2020-12-20 06:10] VITALS: BP 117/66; PULSE 64; RESP 16; TEMP 36.8; O2SAT 94
[2020-12-20 06:26] LABS: Bedside Glucose 134 mg/dL (70-110)
[2020-12-20 06:28] LABS: Absolute Lymphocyte Count 3.23 X10^3/uL (0.83-4.51); Absolute Neutrophil Count 5.5 X10^3/uL (2.0-7.7); Basophil# 0.05 X10^3/uL; Basophil% 0.5 % (0-1); Eosinophil# 0.39 X10^3/uL; Eosinophils% 3.8 % (0-5); Hematocrit 45.6 % (40-54); Hemoglobin 15.6 g/dL (13.0-16.5); Lymphocyte # 3.23 X10^3/ul (0.83-4.51); Lymphocyte % 31.6 % (19-41); Mean Corp Hgb Conc 34.2 g/dL (32-36); Mean Corpuscular Hgb 31.8 pg (27.0-32.0); Mean Corpuscular Volume 92.9 fL (80-94); Mean Platelet Vol. 9.3 fl (6.2-12.0); Monocyte# 1.02 X10^3/uL; NRBC Flagged by Analyzer 0 % (0-5); Neutrophil # 5.52 X10^3/uL (2.7-7.7); Neutrophil % 53.9 % (47-70); Platelet Count 292 K/mm3 (150-450); RBC Distribution Width CV 12.9 % (11.6-14.6); RBC Distribution Width SD 43.6 fl (35.1-43.9); Red Blood Count 4.91 M/mm3 (4.6-6.2); White Blood Count 10.2 K/mm3 (4.4-11.0)
[2020-12-20 07:01] VITALS: PULSE 70
[2020-12-20 07:05] LABS: Anion Gap 7 (5-15); BUN 20 mg/dL (7-18); BUN/Creat Ratio 13.8 RATIO (10-20); Calcium,Total 8.6 mg/dL (8.5-10.1); Chloride 106 mmol/L (98-107); Creatinine, Serum 1.45 mg/dL (0.70-1.30); EST Glomerular Filtration Rate 50 mL/min (>60); Est Glom Filt Rate - Afr Amer 60 mL/min (>60); Estimated Creatinine Clearance 35.93 ml/min; Glucose 126 mg/dL (74-106); Magnesium 2.1 mg/dL (1.6-2.6); Phosphorus 3.3 mg/dL (2.5-4.9); Sodium Level 140 mmol/L (136-145); Thyroid Stim Hormone (TSH) 1.66 uIU/mL (0.358-3.74)
[2020-12-20 08:09] VITALS: O2SAT 94
[2020-12-20 09:22] VITALS: BP 140/73; PULSE 94; RESP 18; TEMP 36.8; O2SAT 95
[2020-12-20] MEDS: Tamsulosin HCl 0.4 MG Capsule PO (09:23)
[2020-12-20] MEDS: Cholecalciferol (VIT D3) 25 MCG TABLET (1,000 UNITS) 125 MCG PO (09:23)
[2020-12-20] MEDS: Lisinopril 40 MG Tablet PO (09:23)
[2020-12-20] MEDS: Aspirin E.C. 81 MG Tablet PO (09:23)
--- NOTE | 2020-12-20 10:04 | PCM.DC ---
Discharge Instructions Diet Discharge Diet: 1800 Calorie Control Diet Activity Discharge Activity: Return to Normal Activity Weight Bearing Status: Full weight bearing Follow Up Care Test Results: Test results from this visit will be discussed in further detail at your follow-up appointment, if applicable. Discharge Plan Admission Admit Date/Time: 12/19/20 17:06 Primary Reason for Your Visit: edema, dyspnea Attending Provider: Roman Melendez Primary Care Provider: Annette Lopez Instructions Patient Instructions: ED Chest Pain, Noncardiac Discharge Orders/Prescriptions Prescriptions: New furosemide [Lasix] 40 mg tablet 40 mg PO DAILY Qty: 30 RF: 0 potassium chloride 10 mEq tablet extended release 20 meq PO DAILY Qty: 60 RF: 0 Continued aspirin [Adult Aspirin Regimen] 81 mg tablet,delayed release (DR/EC) 81 mg PO DAILY RF: 0 glimepiride 1 mg tablet 1 mg PO DAILY RF: 0 tamsulosin 0.4 mg capsule 0.4 mg PO DAILY RF: 0 lisinopril 40 MG tablet 40 mg PO DAILY RF: 0 omeprazole 40 mg Capsule,Delayed Release(Dr/Ec) 40 mg PO QHS RF: 0 omega-3 fatty acids Capsule 1,000 mg PO QODAY RF: 0 cholecalciferol (vitamin D3) [Vitamin D3] 125 mcg (5,000 unit) Tablet 125 mcg PO DAILY RF: 0 B12 Active 1,000 mcg Tablet,Chewable 2,500 mcg PO DAILY RF: 0 rivaroxaban 20 MG tablet 20 mg PO DAILY RF: 0 Referrals / Follow Up: Annette Lopez MD [Primary Care Provider] - Within 2 Weeks Disposition Disposition (needs filled in before D/C Order can be placed): Home, self care
--- NOTE | 2020-12-20 14:51 | DS.PCM_ITS ---
Providers Date of Admission: 12/19/20 Date of Discharge: 12/20/20 Primary Care Physician: Dr. Annette Lopez MD Reason For Visit: DYSPNEA, FLUID RETENTION Diagnosis Discharge Diagnosis (1) Pulmonary emboli: Status: Acute Code(s): I26.99 - Other pulmonary embolism without acute cor pulmonale (2) Edema, peripheral: Status: Acute Code(s): R60.9 - Edema, unspecified (3) NIEVES (dyspnea on exertion): Status: Acute Code(s): R06.00 - Dyspnea, unspecified (4) Abdominal distention: Status: Chronic Code(s): R14.0 - Abdominal distension (gaseous) (5) Thoracic aortic aneurysm (TAA): Status: Chronic Code(s): I71.2 - Thoracic aortic aneurysm, without rupture Qualifiers: Presence of rupture: without rupture Qualified Code(s): I71.2 - Thoracic aortic aneurysm, without rupture (6) Essential (primary) hypertension: Status: Chronic Code(s): I10 - Essential (primary) hypertension (7) Hyperlipidemia: Status: Chronic Code(s): E78.5 - Hyperlipidemia, unspecified (8) Diabetes mellitus, type 2: Status: Acute Code(s): E11.9 - Type 2 diabetes mellitus without complications (9) Esophagitis: Status: Acute Code(s): K20.90 - Esophagitis, unspecified without bleeding Plan: 1. Lower extremity edema secondary to moderate pulmonary hypertension #2 dyspnea secondary to pulmonary hypertension #3 type 2 diabetes #4 chronic kidney disease stage IIIa #5 essential hypertension Medications at Discharge Home Medications lisinopril 40 mg PO DAILY 06/14/13 aspirin 81 mg tablet,delayed release 81 mg PO DAILY 08/27/19 glimepiride 1 mg tablet 1 mg PO DAILY 08/27/19 tamsulosin 0.4 mg capsule 0.4 mg PO DAILY cap 09/01/20 B12 Active 2,500 mcg PO DAILY 12/19/20 cholecalciferol (vitamin D3) [Vitamin D3] 125 mcg PO DAILY 12/19/20 omega-3 fatty acids 1,000 mg PO QODAY 12/19/20 omeprazole 40 mg PO QHS 12/19/20 rivaroxaban 20 mg PO DAILY 12/19/20 furosemide [Lasix] 40 mg PO DAILY #30 tab 12/20/20 potassium chloride 20 meq PO DAILY #60 tab 12/20/20 Hospital Course Operations None Procedures None Summary of Care Provided Minutes Spent on Discharge: 30 Hospital Course: This 80-year-old white male was seen in the emergency room at [facility] with complaints of dyspnea and lower extremity edema. Work-up in the emergency room revealed a normal CBC, chemistry profile was remarkable for a BUN of 19, and patient's chest x-ray showed no evidence of congestive heart failure. Patient was admitted to PCU and placed on IV diuresis, on 12/20/2020, patient was seen and examined, he did not have any lower extremity edema and he was not short of breath. Patient was ambulated on room air and did not require oxygen. On 12/20/2020, patient was seen and examined: On examination he appeared in good health and spirits. Vital signs as documented. Skin warm and dry and without overt rashes. Neck without JVD, neck was supple, trachea midline, thyroid was normal. Lungs clear bilaterally, normal air movement was noted. Heart exam notable for regular rhythm, normal sounds and absence of murmurs, rubs or gallops. Abdomen unremarkable and without evidence of organomegaly, masses, or abdominal aortic enlargement. Bowel sounds are present, abdomen is not distend ed. Extremities nonedematous, no cyanosis was noted, no clubbing was noted. Neuro: Cranial nerves II through XII are grossly intact, no focal motor deficits were noted, sensation to light touch and pinprick intact, motor exam 5/5 throughout. Psych: Patient is alert and oriented x3, he does not appear anxious or depressed, he does not appear agitated. Patient appears stable for discharge on 12/20/2020 in stable condition. ABG / Lab / Microbiology Data Result Diagrams: 12/20/20 05:55 12/20/20 05:55 Laboratory: Laboratory Results - last 24 hr 12/19/20 12/19/20 12/19/20 14:25 14:25 14:25 WBC RBC Hgb Hct MCV MCH MCHC RDW Std Deviation RDW Coeff of Tee Plt Count MPV Immature Gran % (Auto) Neut % (Auto) Lymph % (Auto) [place] % (Auto) Eos % (Auto) Baso % (Auto) Absolute Neuts (auto) Absolute Lymphs (auto) Nucleated RBC % Sodium 139 Potassium 4.0 Chloride 109 H Carbon Dioxide 26.0 Anion Gap 4 L BUN 19 H Creatinine 1.21 Estim Creat Clear Calc 43.06 Est GFR (MDRD) Af Amer 74 Est GFR (MDRD) Non-Af 61 BUN/Creatinine Ratio 15.7 Glucose 100 Calcium 8.7 Phosphorus Magnesium Total Bilirubin 0.40 Direct Bilirubin 0.14 AST 17 ALT 25 Alkaline Phosphatase 72 Troponin I < 0.015 B-Natriuretic Peptide 20.0 Total Protein 6.9 Albumin 3.5 Globulin 3.4 TSH POC Glucose 12/19/20 12/19/20 12/19/20 18:01 18:05 21:11 WBC RBC Hgb Hct MCV MCH MCHC RDW Std Deviation RDW Coeff of Tee Plt Count MPV Immature Gran % (Auto) Neut % (Auto) Lymph % (Auto) [place] % (Auto) Eos % (Auto) Baso % (Auto) Absolute Neuts (auto) Absolute Lymphs (auto) Nucleated RBC % Sodium Potassium Chloride Carbon Dioxide Anion Gap BUN Creatinine Estim Creat Clear Calc Est GFR (MDRD) Af Amer Est GFR (MDRD) Non-Af BUN/Creatinine Ratio Glucose Calcium Phosphorus Magnesium Total Bilirubin Direct Bilirubin AST ALT Alkaline Phosphatase Troponin I < 0.015 < 0.015 B-Natriuretic Peptide Total Protein Albumin Globulin TSH POC Glucose 89 12/19/20 12/20/20 12/20/20 21:23 05:55 05:55 WBC 10.2 RBC 4.91 Hgb 15.6 Hct 45.6 MCV 92.9 MCH 31.8 MCHC 34.2 RDW Std Deviation 43.6 RDW Coeff of Tee 12.9 Plt Count 292 MPV 9.3 Immature Gran % (Auto) 0.200 Neut % (Auto) 53.9 Lymph % (Auto) 31.6 [place] % (Auto) 10.0 Eos % (Auto) 3.8 Baso % (Auto) 0.5 Absolute Neuts (auto) 5.5 Absolute Lymphs (auto) 3.23 Nucleated RBC % 0 Sodium 140 Potassium 4.0 Chloride 106 Carbon Dioxide 27.0 Anion Gap 7 BUN 20 H Creatinine 1.45 H Estim Creat Clear Calc 35.93 Est GFR (MDRD) Af Amer 60 Est GFR (MDRD) Non-Af 50 L BUN/Creatinine Ratio 13.8 Glucose 126 H Calcium 8.6 Phosphorus 3.3 Magnesium 2.1 Total Bilirubin Direct Bilirubin AST ALT Alkaline Phosphatase Troponin I B-Natriuretic Peptide Total Protein Albumin Globulin TSH 1.66 POC Glucose 158 H 12/20/20 06:16 WBC RBC Hgb Hct MCV MCH MCHC RDW Std Deviation RDW Coeff of Tee Plt Count MPV Immature Gran % (Auto) Neut % (Auto) Lymph % (Auto) [place] % (Auto) Eos % (Auto) Baso % (Auto) Absolute Neuts (auto) Absolute Lymphs (auto) Nucleated RBC % Sodium Potassium Chloride Carbon Dioxide Anion Gap BUN Creatinine Estim Creat Clear Calc Est GFR (MDRD) Af Amer Est GFR (MDRD) Non-Af BUN/Creatinine Ratio Glucose Calcium Phosphorus Magnesium Total Bilirubin Direct Bilirubin AST ALT Alkaline Phosphatase Troponin I B-Natriuretic Peptide Total Protein Albumin Globulin TSH POC Glucose 134 H Radiography Diagnostic Testing: Radiology Impression Chest X-Ray 12/19/20 14:13 IMPRESSION: Stable, nonacute portable x-ray examination of the chest. Electronically Signed: Ted So MD (Brooks) at 14:53 EDT , Service support , Chest CTA 12/19/20 17:06 IMPRESSION: 1. Favorable change. Decreased size, number and extent of pulmonary embolism. Mild residual segmental pulmonary emboli in the lower lobes. Electronically Signed: Ted So MD (Brooks) at 18:00 EDT , Service support , D/C Instructions Discharge Diet: 1800 Calorie Control Diet Discharge Activity: Return to Normal Activity Weight Bearing Status: Full weight bearing Meaningful Use Info Meaningful Use Diagnoses (Choose all that apply): None applicable Discharge Plan Admission Admit Date/Time: 12/19/20 17:06 Primary Reason for Your Visit: edema, dyspnea Attending Provider: Roman Melendez Primary Care Provider: Annette Lopez Instructions Patient Instructions: ED Chest Pain, Noncardiac Additional Instructions / Restrictions: Patient Problems: Altered Health Status related to Hospitalization Patient Goals: *Optimal Level of Health *Keep Appointments *Medication Compliance *Remain Safe Discharge Orders/Prescriptions Prescriptions: New furosemide [Lasix] 40 mg tablet 40 mg PO DAILY Qty: 30 RF: 0 potassium chloride 10 mEq tablet extended release 20 meq PO DAILY Qty: 60 RF: 0 Continued aspirin [Adult Aspirin Regimen] 81 mg tablet,delayed release (DR/EC) 81 mg PO DAILY RF: 0 glimepiride 1 mg tablet 1 mg PO DAILY RF: 0 tamsulosin 0.4 mg capsule 0.4 mg PO DAILY RF: 0 lisinopril 40 MG tablet 40 mg PO DAILY RF: 0 omeprazole 40 mg Capsule,Delayed Release(Dr/Ec) 40 mg PO QHS RF: 0 omega-3 fatty acids Capsule 1,000 mg PO QODAY RF: 0 cholecalciferol (vitamin D3) [Vitamin D3] 125 mcg (5,000 unit) Tablet 125 mcg PO DAILY RF: 0 B12 Active 1,000 mcg Tablet,Chewable 2,500 mcg PO DAILY RF: 0 rivaroxaban 20 MG tablet 20 mg PO DAILY RF: 0 Referrals / Follow Up: Annette Lopez MD [Primary Care Provider] - Within 2 Weeks (Please call to schedule follow up appointment) Disposition Disposition (needs filled in before D/C Order can be placed): Home, self care Visit Charges Inpatient E&M: 34182 Disch Hosp
--- NOTE | 2020-12-21 13:56 | CASEMGMT ---
RN CM Discharge Follow Up Phone Call: GABRIELLE: Susie Strata: 3 Call Date: 12.21.20 Discharge Date: 12.20.20 Time of Call:1355 Duration:3 min Admitting Dx: edema/sob RN CM completed follow up phone call after recent hospitalization. Pt states he is doing well since being home. States that lasix really works. Denies swelling in his LE's. States he is having a little bit of pain from his bakers cyst. He picked up rx without difficulty. Pt to make follow up appt with PCP this afternoon. Pt denies any questions regarding dc instructions or medications. Pt states he received excellent care and the nurses seemed like they cared about him. He thanked this CM for the call.
== END 2020-12-20 11:07 | disposition home or self-care (01) | DRG 176 ==
LOC: ED 13:23 → PCU 16:14
PROVIDERS: Admitting Provider Internal Medicine; Emergency Provider Emergency Medicine; PCP Internal Medicine; Visit Provider Internal Medicine
DX: I26.99 Other pulmonary embolism without acute cor pulmonale (principal); Q23.1 Congenital insufficiency of aortic valve; I71.2 Thoracic aortic aneurysm, without rupture; E11.22 Type 2 diabetes mellitus with diabetic chronic kidney disease; I12.9 Hypertensive chronic kidney disease with stage 1 through stage 4 chronic kidney disease, or unspecified chronic kidney disease; E78.5 Hyperlipidemia, unspecified; E66.9 Obesity, unspecified; K20.90 Esophagitis, unspecified without bleeding; I27.20 Pulmonary hypertension, unspecified; N18.31 Chronic kidney disease, stage 3a; Z86.718 Personal history of other venous thrombosis and embolism; Z86.711 Personal history of pulmonary embolism; Z79.899 Other long term (current) drug therapy; Z79.82 Long term (current) use of aspirin; Z68.37 Body mass index [BMI] 37.0-37.9, adult
CPT/HCPCS: 36415; 71045; 71275; 80048; 80076; 82962; 83735; 83880; 84100; 84443; 84484; 85025; 93005; 93970; 99251; 99284; Q9967; A4216; G0463; J1940

== ENCOUNTER → 2021-01-27 15:46 | Outpatient (CLI) | payer MEDICARE, SELFPAY ==
[2020-12-19 16:39] VITALS: BMI 37.4
[2021-01-27 17:08] LABS: Hematocrit 44.7 % (40-54); Hemoglobin 15.2 g/dL (13.0-16.5); Mean Corpuscular Hgb 31.3 pg (27.0-32.0); Mean Corpuscular Volume 92.2 fL (80-94); Mean Platelet Vol. 9.6 fl (6.2-12.0); Platelet Count 312 K/mm3 (150-450); RBC Distribution Width CV 12.3 % (11.6-14.6); RBC Distribution Width SD 41.7 fl (35.1-43.9); Red Blood Count 4.85 M/mm3 (4.6-6.2); White Blood Count 10.6 K/mm3 (4.4-11.0)
[2021-01-27 17:37] LABS: BNP,B-Type NATRIURETIC PEPTIDE 25.1 pg/mL (0-100)
[2021-01-27 17:39] LABS: Anion Gap 6 (5-15); BUN 18 mg/dL (7-18); Calcium,Total 9.1 mg/dL (8.5-10.1); Chloride 104 mmol/L (98-107); Creatinine, Serum 1.63 mg/dL (0.70-1.30); EST Glomerular Filtration Rate 44 mL/min (>60); Est Glom Filt Rate - Afr Amer 53 mL/min (>60); Glucose 110 mg/dL (74-106); Potassium 3.8 mmol/L (3.5-5.1); Sodium Level 139 mmol/L (136-145)
== END ==
PROVIDERS: PCP Internal Medicine; Referring Provider Physician Assistant Medical; Visit Provider Physician Assistant Medical
DX: R06.00 Dyspnea, unspecified (principal); R06.02 Shortness of breath; R60.9 Edema, unspecified; N18.9 Chronic kidney disease, unspecified
CPT/HCPCS: 36415; 80048; 83880; 85027

== ENCOUNTER 2021-03-28 19:23 | Emergency (ER) | payer MEDICARE, SELFPAY ==
[2021-03-28 19:24] VITALS: BP 126/64; PULSE 80; RESP 18; TEMP 38.3; O2SAT 92; BMI 35.5
--- NOTE | 2021-03-28 20:27 | EKG12_ITS ---
Test Reason : DYSRYTHMIA Blood Pressure : / mmHG Vent. Rate : 084 BPM Atrial Rate : 084 BPM P-R Int : 154 ms QRS Dur : 090 ms QT Int : 354 ms P-R-T Axes : 024 -15 011 degrees QTc Int : 418 ms Normal sinus rhythm Normal ECG Confirmed by SVETA WALKER, ASHA ([id number]), primer expeditor and drier JUAN GALINDO ([id number]) on 03/30/2021 8:37:45 AM Referred By: TORY Confirmed By:ASHA BANGURA MD
--- NOTE | 2021-03-28 20:28 | EDS_ITS ---
HPI History of Present Illness Chief Complaint: General Illness Narrative Narrative: 80-year-old male presenting with generalized weakness, decreased p.o. intake, body aches, fevers at home. Apparently this has been going on for about 5 days to a week. Patient did speak with his PCP and it was recommended that he get tested for Covid 19 however since the [facility] was closed all week did not get tested. Patient son-in-law tested positive for COVID-19. Patient did not want to get vaccinated due to personal beliefs. Patient currently denies any chest pain or shortness of breath. His daughter states that he does have decreased p.o. intake which is worse today. He had a couple episodes where he felt weak and fell into his closet yesterday. He denies head injury or LOC. He describes this as lightheadedness. Patient had a fever earlier today however this is 1 treated as the patient did not want to take anything for fever. He is able to eat and drink some however he has decreased appetite. He does not have any nausea or vomiting. He did have diarrhea earlier this week which is now resolved. He denies black or bloody stools. Patient does have history of pulmonary emboli and is anticoagulated on Xarelto. Patient's daughter does report that his pulse ox has been down to 89% at its lowest. He does have home oxygen which is set up for previous hospital stay. He can use this as needed which is what it was indicated for. He has not tried to use this. [facility] Medical History Abdominal distention Anal fistula Benign neoplasm of colon Bicuspid aortic valve BPH (benign prostatic hyperplasia) CKD (chronic kidney disease) Diverticulosis DVT (deep venous thrombosis) Dyspnea on exertion Essential (primary) hypertension GI bleed History of pulmonary embolism (10/2013) Hyperlipidemia Kidney stone Obesity Shortness of breath Tachycardia Thoracic aortic aneurysm (TAA) Type 2 diabetes mellitus Home Medications lisinopril 40 mg PO DAILY 06/14/13 [History Last Taken 12/19/20] tamsulosin 0.4 mg capsule 0.4 mg PO DAILY cap 09/01/20 [History Last Taken 12/19/20] B12 Active 2,500 mcg PO DAILY 12/19/20 [History Last Taken 12/19/20] cholecalciferol (vitamin D3) [Vitamin D3] 125 mcg PO DAILY 12/19/20 [History Last Taken 12/19/20] omega-3 fatty acids 1,000 mg PO QODAY 12/19/20 [History Last Taken 12/18/20] omeprazole 40 mg PO QHS 12/19/20 [History Last Taken 12/18/20] rivaroxaban 20 mg PO DAILY 12/19/20 [History Last Taken 12/19/20] furosemide [Lasix] 40 mg PO DAILY #30 tab 12/20/20 [Rx Last Taken Unknown] potassium chloride 20 meq PO DAILY #60 tab 12/20/20 [Rx Last Taken Unknown] glimepiride 1 mg tablet 2 mg PO DAILY tab 03/15/21 [History Last Taken Unknown] dexamethasone [Decadron] 6 mg PO DAILY #13 tab 03/28/21 [Rx Last Taken Unknown] Allergy/AdvReac Type Severity Reaction Status Date / Time No Known Allergies Allergy Verified 03/28/21 19:26 Surgical History History of carpal tunnel release History of colonoscopy History of rectal surgery History of shoulder surgery Social History Smoking Status: Never smoker alcohol intake: never substance use type: does not use caffeine: Yes Type: carbonated beverages and coffee Number of servings: 1 ROS ROS ED Constitutional Constitutional ED: Reports chills and fever(s); Denies sweats Eyes Eyes: Denies blurry vision or diplopia ENT ENT ED: Denies rhinorrhea or sore throat Cardiovascular Cardiovascular: Denies chest pain, palpitations or racing heartbeat Respiratory/Chest Respiratory/Chest: Reports cough; Denies dyspnea or dyspnea on exertion Gastrointestinal Gastrointestinal: Reports diarrhea and nausea; Denies abdominal pain, constipation, melena or vomiting Genitourinary Genitourinary ED: Denies dysuria or hematuria Musculoskeletal Musculoskeletal: Reports myalgias; Denies arthralgias or neck pain Integumentary Denies Abrasions or rash Neurologic Neurologic: Denies headache(s) or paresthesias EXAM Physical Exam Const Vital Signs: 03/28/21 19:24 03/28/21 21:05 Temperature 100.9 F H 100.9 F H Temperature Source Temporal Temporal Pulse Rate 80 99 Respiratory Rate 18 18 Respiratory Effort Normal Respiratory Pattern Normal Blood Pressure 126/64 H 113/68 Blood Pressure Mean 84 83 Pulse Ox 92 92 Oxygen Delivery Method Room Air Nasal Cannula Positive well nourished General Appearance ED: NAD; Negative for pallor HEENT Reports moist mucous membranes Negative for trauma Eyes PERRL and EOMs intact bilaterally General Eye ED: Negative for pale conjunctiva or scleral icterus Resp normal respiratory effort Auscultation: rhonchi throughout Cardio regular rate and regular rhythm GI normal to inspection, nondistended, normoactive bowel sounds Extremity normal to inspection General Extremety ED: Negative for edema or tenderness General Extremity: Negative for edema Neuro oriented x3 Sensorium / Orientation: alert Psych mental status grossly normal Skin no rashes or lesions noted and No no wounds General Skin Exam: Negative for jaundice or pallor MDM MDM MDM Narrative Medical decision making narrative: Patient presenting with concern for COVID-19 pneumonitis given his family has Covid. He arrives with a fever of 100.9. He was given Tylenol for the fever. EKG on arrival shows a normal sinus rhythm at 84 bpm without sign of ischemic change. Chest x-ray on my interpretation shows bilateral patchy opacities consistent with COVID-19. Patient's LFTs are normal with exception of an AST of 45. Troponin is negative. Creatinine is above baseline. Patient is dropped to 89% at times in the ED however he does have home oxygen which she is supposed to use as needed. His daughter does home health care nursing and she feels she can assist him with his home oxygen. He is counseled on hydration. Patient and his daughter given return precautions. Given that the patient was hypoxic he was started on Decadron. He was given a prescription for this. Because of this he does not qualify for monoclonal antibiotic therapy. Patient is counseled to follow-up with his PCP to ensure resolution. Impression: 1. COVID-19 pneumonitis a little cold 2. Hypoxia 3. Generalized Lab Data Attestation: I reviewed the patient's lab results. Labs: Laboratory Results - last 24 hr 03/28/21 03/28/21 03/28/21 20:50 20:50 20:50 WBC 7.8 RBC 4.66 Hgb 14.8 Hct 42.2 MCV 90.6 MCH 31.8 MCHC 35.1 RDW Std Deviation 43.8 RDW Coeff of Tee 13.1 Plt Count 209 MPV 9.4 Immature Gran % (Auto) 0.400 Neut % (Auto) 73.9 H Lymph % (Auto) 15.6 L [place] % (Auto) 10.1 H Eos % (Auto) 0.0 Baso % (Auto) 0.0 Absolute Neuts (auto) 5.8 Absolute Lymphs (auto) 1.22 Nucleated RBC % 0 Sodium 134 L Potassium 4.5 Chloride 100 Carbon Dioxide 27.0 Anion Gap 7 BUN 19 H Creatinine 1.43 H Estim Creat Clear Calc 37.80 Est GFR (MDRD) Af Amer 61 Est GFR (MDRD) Non-Af 51 L BUN/Creatinine Ratio 13.3 Glucose 194 H Calcium 8.2 L Total Bilirubin 0.40 AST 45 H ALT 45 Alkaline Phosphatase 62 Troponin I High Sens 15 Total Protein 6.8 Albumin 3.0 L Globulin 3.8 Albumin/Globulin Ratio 0.8 L Procalcitonin 0.33 H Radiography Diagnostic Testing: Radiology Impression Chest X-Ray 03/28/21 20:45 IMPRESSION: Abnormal patchy opacities bilateral lungs also with increased reticular markings, left greater than right. Infectious etiology is likely. These nonspecific findings could be seen with COVID pneumonia. Electronically Signed: Ang Rogers DO at 21:32 EDT Tel , Service support , Discharge Plan Triage Chief Complaint: General Illness ED Provider: Joshua Mancera Dx/Rx/DC Orders Instructions: Coronavirus Disease 2019 (COVID-19): Caring for Yourself or Others Prescriptions: New dexamethasone [Decadron] 6 mg tablet 6 mg PO DAILY Qty: 13 RF: 0 No Action glimepiride 1 mg tablet 2 mg PO DAILY RF: 0 tamsulosin 0.4 mg capsule 0.4 mg PO DAILY RF: 0 lisinopril 40 MG tablet 40 mg PO DAILY RF: 0 omeprazole 40 mg Capsule,Delayed Release(Dr/Ec) 40 mg PO QHS RF: 0 omega-3 fatty acids Capsule 1,000 mg PO QODAY RF: 0 cholecalciferol (vitamin D3) [Vitamin D3] 125 mcg (5,000 unit) Tablet 125 mcg PO DAILY RF: 0 B12 Active 1,000 mcg Tablet,Chewable 2,500 mcg PO DAILY RF: 0 rivaroxaban 20 MG tablet 20 mg PO DAILY RF: 0 furosemide [Lasix] 40 mg tablet 40 mg PO DAILY Qty: 30 RF: 0 potassium chloride 10 mEq tablet extended release 20 meq PO DAILY Qty: 60 RF: 0 Primary Care Provider: Annette Lopez Referrals: Annette Lopez MD [Primary Care Provider] - Disposition Disposition: Home, Self Care
[2021-03-28] MEDS: Acetaminophen 500 MG Tablet 1000 MG PO (20:38)
--- NOTE | 2021-03-28 20:45 | RAD_ITS ---
INDICATION: cough EXAMINATION/TECHNIQUE: X-RAY - XR Chest 1 View COMPARISON: 12/19/2020 FINDINGS: LINES/DEVICES: Overlying heart monitoring wires. LUNGS: Abnormal airspace opacities seen in the periphery of the right and left lung with increased reticular markings peripherally. No pleural effusion. No pneumothorax. No nodular mass. MEDIASTINUM AND CARDIOVASCULAR STRUCTURES: Cardiac silhouette not enlarged. Central airways and mediastinal contour are unremarkable. BONES AND SOFT TISSUES: Intraosseous screws left humeral head. Degenerative changes bilateral acromioclavicular joints and thoracic spine endplates. RAD/Chest 1 View (Portable) IMPRESSION: Abnormal patchy opacities bilateral lungs also with increased reticular markings, left greater than right. Infectious etiology is likely. These nonspecific findings could be seen with COVID pneumonia. Electronically Signed: Ang Rogers DO at 21:32 EDT Tel , Service support ,
[2021-03-28 21:03] LABS: Absolute Lymphocyte Count 1.22 X10^3/uL (0.83-4.51); Absolute Neutrophil Count 5.8 X10^3/uL (2.0-7.7); Hematocrit 42.2 % (40-54); Hemoglobin 14.8 g/dL (13.0-16.5); Lymphocyte # 1.22 X10^3/ul (0.83-4.51); Lymphocyte % 15.6 % (19-41); Mean Corp Hgb Conc 35.1 g/dL (32-36); Mean Corpuscular Hgb 31.8 pg (27.0-32.0); Mean Corpuscular Volume 90.6 fL (80-94); Mean Platelet Vol. 9.4 fl (6.2-12.0); Monocyte# 0.79 X10^3/uL; Monocyte% 10.1 % (0-10); NRBC Flagged by Analyzer 0 % (0-5); Neutrophil # 5.79 X10^3/uL (2.7-7.7); Neutrophil % 73.9 % (47-70); Platelet Count 209 K/mm3 (150-450); RBC Distribution Width CV 13.1 % (11.6-14.6); RBC Distribution Width SD 43.8 fl (35.1-43.9); Red Blood Count 4.66 M/mm3 (4.6-6.2); White Blood Count 7.8 K/mm3 (4.4-11.0)
[2021-03-28 21:05] VITALS: BP 113/68; PULSE 99; RESP 18; TEMP 38.3; O2SAT 88; O2SAT 92
[2021-03-28 21:20] LABS: ALB/GLOB Ratio 0.8 RATIO (0.9-2.4); AST(SGOT) 45 U/L (15-37); Alanine Aminotransfer ALT/SGPT 45 U/L (16-61); Alkaline Phosphatase 62 U/L (45-117); Anion Gap 7 (5-15); BUN 19 mg/dL (7-18); BUN/Creat Ratio 13.3 RATIO (10-20); Calcium,Total 8.2 mg/dL (8.5-10.1); Chloride 100 mmol/L (98-107); Creatinine, Serum 1.43 mg/dL (0.70-1.30); EST Glomerular Filtration Rate 51 mL/min (>60); Est Glom Filt Rate - Afr Amer 61 mL/min (>60); Globulin 3.8 g/dL (2.2-4.2); Glucose 194 mg/dL (74-106); Potassium 4.5 mmol/L (3.5-5.1); Protein, Total 6.8 g/dL (6.4-8.2); Sodium Level 134 mmol/L (136-145); Troponin-I HS 15 pg/mL (3.0-78.0)
[2021-03-28 21:35] LABS: Procalcitonin 0.33 ng/mL (0.00-0.09)
[2021-03-28 22:43] VITALS: BP 115/67; PULSE 87; RESP 10; O2SAT 93
[2021-03-28] MEDS: dexAMETHasone 10 MG/ML Vial 6 MG IV (22:43)
== END 2021-03-28 22:44 | disposition home or self-care (01) ==
PROVIDERS: Emergency Provider Student in an Organized Health Care Education/Training Program; PCP Internal Medicine
DX: U07.1 COVID-19 (principal); J12.82 Pneumonia due to coronavirus disease 2019; R09.02 Hypoxemia; I12.9 Hypertensive chronic kidney disease with stage 1 through stage 4 chronic kidney disease, or unspecified chronic kidney disease; N18.9 Chronic kidney disease, unspecified; N40.0 Benign prostatic hyperplasia without lower urinary tract symptoms; Z79.01 Long term (current) use of anticoagulants; Z86.711 Personal history of pulmonary embolism; Z79.899 Other long term (current) drug therapy
CPT/HCPCS: 71045; 80053; 84145; 84484; 85025; 87426; 93005; 96374; 99285; A4216

== ENCOUNTER → 2022-07-13 | Outpatient (CLI) | payer MEDICARE, SELFPAY ==
--- NOTE | 2022-07-13 13:52 | ECHOD_ITS ---
Reason For Study: Thoracic Ao Aneurysm Procedure This was a 2D Doppler, Color Flow transthoracic echocardiogram. Exam performed in department. Left Ventricle Normal LV size. Mild concentric left ventricular hypertrophy. Left ventricular systolic function is normal. The estimated ejection fraction is 55 %. Stage 1 diastolic dysfunction. No regional wall motion abnormalities noted. Right Ventricle Normal RV size. Normal systolic function. Atria Normal left atrium. Normal right atrium. Mitral Valve Bileaflet diffuse mitral valve thickening. Tricuspid Valve Normal tricuspid valve. Aortic Valve Trisinus/trileaflet aortic valve. Mild diffuse aortic valve thickening. Mild (1+) aortic valve insufficiency. Pulmonic Valve Normal pulmonic valve. Great Vessels Mild to moderately dilated aortic root. The pulmonary artery is normal size. Normal inferior vena cava. Pericardium/Pleural No pericardial effusion. MMode/2D Measurements & Calculations LVIDd: 4.3 cm IVSd: 1.4 cm LVOT diam: 2.1 cm LVIDs: 3.2 cm LVPWd: 1.4 cm LVOT area: 3.5 cm2 RVDd: 2.1 cm FS: 23.9 % Ao root diam: 4.4 cm LAV(MOD-bp): 36.1 ml LVAd ap4: 23.8 cm2 LAV(MOD-bp) Indexed: 17.2 ml/m2 LVLd ap4: 7.6 cm LAV(MOD-sp2): 44.9 ml EDV(MOD-sp4): 62.0 ml LAV(MOD-sp4): 30.1 ml EDV(sp4-el): 63.5 ml LVAs ap4: 14.3 cm2 LVLs ap4: 6.5 cm ESV(MOD-sp4): 27.0 ml ESV(sp4-el): 26.5 ml EF(MOD-sp4): 56.4 % EF(sp4-el): 58.3 % SV(MOD-sp4): 35.0 ml SV(sp4-el): 37.0 ml LA A4 area: 13.6 cm2 LA dimension(2D): 3.5 cm RA A4 area: 13.4 cm2 Time Measurements MV dec time: 0.32 sec Doppler Measurements & Calculations MV E max cruz: 65.0 cm/sec Lat Peak E' Cruz: 8.3 cm/sec Med Peak E' Cruz: 6.5 cm/sec MV A max cruz: 107.4 cm/sec E/E' lat: 7.8 E/E' med: 10.0 MV E/A: 0.61 Ao V2 max: 206.4 cm/sec LV V1 max: 88.1 cm/sec SV(LVOT): 63.4 ml Ao max P.1 mmHg LV V1 max P.1 mmHg Ao V2 mean: 138.0 cm/sec LV V1 mean P.6 mmHg Ao mean P.6 mmHg LV V1 mean: 59.9 cm/sec Ao V2 VTI: 40.5 cm LV V1 VTI: 18.1 cm AV (velocity ratio): 0.45 CHLOE(I,D): 1.6 cm2 CHLOE(V,D): 1.5 cm2 PA V2 max: 78.8 cm/sec ECHO/Echo Complete Interpretation Summary Normal LV size. Left ventricular systolic function is normal. The estimated ejection fraction is 55 %. Mild (1+) aortic valve insufficiency. Stage 1 diastolic dysfunction. Mild concentric left ventricular hypertrophy. Ordering Physician: Deandre Man Referring Physician: Annette Lopez Performed By: Elma Man, DEBORAH, RVT
== END | disposition home or self-care (01) ==
LOC: CVS 13:51
PROVIDERS: PCP Internal Medicine; Referring Provider Nurse Practitioner Family; Visit Provider Nurse Practitioner Family
DX: I71.20 Thoracic aortic aneurysm, without rupture, unspecified (principal); I10 Essential (primary) hypertension; I51.7 Cardiomegaly
CPT/HCPCS: 93306